=== PATIENT | male | born 1960 | race Caucasian/White ===

== ENCOUNTER → 2016-11-05 03:54 | Emergency (ER) | payer OTHER ==
[~2016-11-05 03:54] MED LIST: HYDROmorphone INJ* 1 MG/ML CARPUJECT SYRINGE IM ONE; oxyCODONE TAB* 5 MG TAB PO ONE
[2016-11-05 04:03] VITALS: BP 151/106
--- NOTE | 2016-11-05 05:27 | ED ---
Chriss Funk Benjamin, scribed for Lala Gonsalez MD on 11/05/16 at 0417 . Upper Extremity Pain - HPI Summary HPI Summary: 56yo male c/o right shoulder pain after a mechanical fall, slipping off ice yesterday evening. Pt took 10mg oxycodone po at 2300, but did not help. Pt states that his pain kept him up all night. - History of Current Complaint Chief Complaint: ANA MARIAstephanAneta Stated Complaint: FALL/RT SHOULDER PAIN Time Seen by Provider: 11/05/16 04:05 Hx Obtained From: Patient Mechanism Of Injury: Fall From A Standing Position Onset/Duration: Started Hours Ago, Traumatic, Still Present Timing: Constant Severity Initially: Moderate Severity Currently: Moderate Pain Location: Shoulder - right Character: Throbbing Aggravating Factor(s): Nothing Alleviating Factor(s): Nothing Associated Signs & Symptoms: Positive: Negative - Allergies/Home Medications Allergies/Adverse Reactions: Allergies Allergy/AdvReac Type Severity Reaction Status Date / Time No Known Allergies Allergy Verified 11/05/15 15:36 PMH/Surg Hx/FS Hx/Imm Hx Endocrine/Hematology History: Denies: Hx Diabetes, Hx Thyroid Disease Cardiovascular History: Reports: Hx Hypercholesterolemia, Hx Hypertension Respiratory History: Reports: Hx Chronic Bronchitis Denies: Hx Asthma, Hx Chronic Obstructive Pulmonary Disease (COPD) GI History: Denies: Hx Ulcer Musculoskeletal History: Reports: Hx Arthritis, Hx Back Problems, Hx Orthopedic Injury - Fractured pelvis and low back at age 14yrs old Sensory History: Reports: Hx Cataracts - Left eye cataract, Hx Contacts or Glasses - Contacts, Hx Vision Problem - Torn Retina last 2013 Left eye Opthamlomology History: Reports: Hx Cataracts - Left eye cataract, Hx Contacts or Glasses - Contacts, Hx Vision Problem - Torn Retina last 2013 Left eye - Surgical History Surgery Procedure, Year, and Place: Tonsillectomy at age 4 yrs Infectious Disease History: No Infectious Disease History: Denies: Hx Clostridium Difficile, Hx Hepatitis, Hx Human Immunodeficiency Virus (HIV), Hx of Known/Suspected MRSA, Hx Shingles, Hx Tuberculosis, Hx Known/ Suspected VRE, Hx Known/Suspected VRSA, History Other Infectious Disease, Traveled Outside the [place] in Last 30 Days - Family History Known Family History: Positive: Cardiac Disease - Social History Alcohol Use: None Alcohol Amount: 2 beer a couple times per month Substance Use Type: Reports: None, Prescribed Substance Use Comment - Amount & Last Used: oxycontin and oxycodone Smoking Status (MU): Never Smoked Tobacco Review of Systems Constitutional: Negative Eyes: Negative ENT: Negative Cardiovascular: Negative Respiratory: Negative Gastrointestinal: Negative Genitourinary: Negative Positive: Arthralgia - right shoulder pain Skin: Negative Neurological: Negative Psychological: Normal All Other Systems Reviewed And Are Negative: Yes Physical Exam Triage Information Reviewed: Yes Vital Signs On Initial Exam: Initial Vitals Temp Pulse Resp BP Pulse Ox 97.3 F 90 17 151/106 97 11/05/16 03:59 11/05/16 03:59 11/05/16 03:59 11/05/16 03:59 11/05/16 03:59 Vital Signs Reviewed: Yes Appearance: Positive: Well-Appearing, No Pain Distress, Well-Nourished Skin: Positive: Warm, Skin Color Reflects Adequate Perfusion, Dry Head/Face: Positive: Normal Head/Face Inspection Eyes: Positive: EOMI, DHIRAJ ENT: Positive: Hearing grossly normal, Pharynx normal, TMs normal Neck: Positive: Supple, Nontender Respiratory/Lung Sounds: Positive: Clear to Auscultation, Breath Sounds Present. Negative: Rales, Rhonchi, Wheezes Cardiovascular: Positive: RRR. Negative: Murmur, Rub Abdomen Description: Positive: Nontender, Soft. Negative: Distended, Guarding Bowel Sounds: Positive: Present Musculoskeletal: Positive: Strength/ROM Intact, Other - Pain at right deltroid. No step off. No tenderness on clavicle. ROM intact to internal and external rotation of the right arm. Neurological: Positive: Sensory/Motor Intact, Alert, Oriented to Person Place, Time, CN Intact II-III Diagnostics - Vital Signs Vital Signs Temp Pulse Resp BP Pulse Ox 11/05/16 03:59 97.3 F 90 17 151/106 97 - Laboratory Lab Statement: Any lab studies that have been ordered have been reviewed, and results considered in the medical decision making process. - Radiology Rt shoulder XR Xray Interpretation: No Acute Changes Radiology Interpretation Completed By: ED Physician Course/Dx - Course Course Of Treatment: pt with good range of motion of arm and shoulder with mild tenderness to deltoid without deformity or noticeable contusion xrays neg given 2 doses of10 mg of his oxycodone to go - Diagnoses Provider Diagnoses: Shoulder injury Discharge - Discharge Plan Condition: Stable Disposition: HOME Patient Education Materials: Contusion in Adults (ED) Referrals: John Arita MD [Primary Care Provider] - The documentation as recorded by the Chriss bravo Benjamin accurately reflects the service I personally performed and the decisions made by me, Lala Gonsalez MD.
--- NOTE | 2016-11-05 07:02 | RAD ---
INDICATION: Right shoulder pain COMPARISON: None TECHNIQUE: Routine frontal and Y views were obtained. FINDINGS: There is AC joint osteoarthritis with sclerosis and spurring. There is minor glenohumeral osteoarthritis. There is no evidence of dislocation. The soft tissues are normal. IMPRESSION: MINOR OSTEOARTHRITIS.
== END | disposition home or self-care (01) ==
LOC: ED 03:54
DX: S49.91XA Unspecified injury of right shoulder and upper arm, initial encounter (principal); W00.9XXA Unspecified fall due to ice and snow, initial encounter; Y93.9 Activity, unspecified; Y92.9 Unspecified place or not applicable; Y99.9 Unspecified external cause status
CPT/HCPCS: 96372; 99282; A9270-GY

== ENCOUNTER 2017-05-08 10:12 | Emergency (ER) | payer OTHER ==
[2017-05-08] MEDS ORDERED: Tetan/Diph/Pertus SYR(Tdap)* 0.5 ML SYR(BOOSTRIX) use SYR IM ONE (10:54)
[2017-05-08] MEDS ORDERED: Ibuprofen TAB* 800 MG PO ONE (10:54)
[2017-05-08] MEDS ORDERED: oxyCODONE/Acetamin 5/325 MG* TAB PO ONE (10:54)
--- NOTE | 2017-05-08 10:59 | ED ---
Upper Extremity Pain - HPI Summary HPI Summary: Lt hand dominant pt here w/ Lt thumb lac on table saw prior to arrival. Throbbing at first - somewhat better now. Believes tetanus vaccine is > 5 years old. Denies numbness, tingling, weakness. Tkaes 80mg oxycodone daily in addition to oxycontin for chronic LBP. Has not taken any meds prior to arrival. - History of Current Complaint Chief Complaint: EDExtremityUpper Stated Complaint: LT THUMB INJURY Time Seen by Provider: 05/08/17 10:46 Hx Obtained From: Patient - Allergies/Home Medications Allergies/Adverse Reactions: Allergies Allergy/AdvReac Type Severity Reaction Status Date / Time Avocado Allergy Headache Verified 06/02/17 02:27 PMH/Surg Hx/FS Hx/Imm Hx Previously Healthy: Yes Endocrine/Hematology History: Denies: Hx Anticoagulant Therapy, Hx Blood Disorders, Hx Diabetes, Hx Thyroid Disease Cardiovascular History: Reports: Hx Hypercholesterolemia, Hx Hypertension Respiratory History: Reports: Hx Chronic Bronchitis Denies: Hx Asthma, Hx Chronic Obstructive Pulmonary Disease (COPD) GI History: Denies: Hx Ulcer Musculoskeletal History: Reports: Hx Arthritis, Hx Back Problems, Hx Orthopedic Injury - Fractured pelvis and low back at age 14yrs old Sensory History: Reports: Hx Cataracts - Left eye cataract, Hx Contacts or Glasses - Contacts, Hx Vision Problem - Torn Retina last 2013 Left eye Opthamlomology History: Reports: Hx Cataracts - Left eye cataract, Hx Contacts or Glasses - Contacts, Hx Vision Problem - Torn Retina last 2013 Left eye - Surgical History Surgery Procedure, Year, and Place: Tonsillectomy at age 4 yrs Infectious Disease History: Denies: Hx Clostridium Difficile, Hx Hepatitis, Hx Human Immunodeficiency Virus (HIV), Hx of Known/Suspected MRSA, Hx Shingles, Hx Tuberculosis, Hx Known/ Suspected VRE, Hx Known/Suspected VRSA, History Other Infectious Disease, Traveled Outside the [place] in Last 30 Days - Family History Known Family History: Positive: Cardiac Disease - Social History Occupation: Employed Full-time Alcohol Use: None Alcohol Amount: 2 beer a couple times per month Hx Substance Use: No Substance Use Type: Reports: None, Prescribed Substance Use Comment - Amount & Last Used: oxycontin and oxycodone Hx Tobacco Use: No Smoking Status (MU): Never Smoked Tobacco Review of Systems Negative: Chest Pain Negative: Shortness Of Breath Positive: no symptoms reported Musculoskeletal: Other - see HPI Skin: Other - see HPI Neurological: Negative Negative: Weakness, Paresthesia, Numbness Psychological: Normal All Other Systems Reviewed And Are Negative: Yes Physical Exam Triage Information Reviewed: Yes Vital Signs On Initial Exam: Initial Vitals Temp Pulse Resp BP Pulse Ox 97.0 F 101 20 156/108 99 05/08/17 10:13 05/08/17 10:13 05/08/17 10:13 05/08/17 10:13 05/08/17 10:13 Vital Signs Reviewed: Yes Appearance: Positive: Well-Appearing, No Pain Distress, Well-Nourished Skin: Positive: Warm - distal dorsal tip of Lt thumb w/ jagged avulsion of skin - no active bleeding Head/Face: Positive: Normal Head/Face Inspection Eyes: Positive: Normal, EOMI ENT: Positive: Hearing grossly normal, Pharynx normal - oral mucosa somewhat dry Respiratory/Lung Sounds: Positive: Breath Sounds Present Cardiovascular: Positive: Normal, Pulses are Symmetrical in both Upper and Lower Extremities Musculoskeletal: Positive: Normal, Strength/ROM Intact Neurological: Positive: Normal, Sensory/Motor Intact, Alert, Oriented to Person Place, Time, CN Intact II-III Psychiatric: Positive: Anxious Procedures - Procedure Summary Procedure Summary: Distal Left thumb with jagged avulsion of skin - no bone exposure identified - no FB identified. Bleeding controlled. Area cleaned with sterile saline, dried and dressed with xeroform + sterile gauze. Pt tolerated well. Diagnostics - Vital Signs Vital Signs Temp Pulse Resp BP Pulse Ox 05/08/17 10:13 97.0 F 101 20 156/108 99 - Laboratory Lab Statement: Any lab studies that have been ordered have been reviewed, and results considered in the medical decision making process. Course/Dx - Course Course Of Treatment: Pt here w/ laceration to Lt thumb while using table saw earlier today. Avulsion of skin at distal aspect w/o involvement of bone, tendon , nerves and no active bleeding. His XR has a small metalic FB identified which is proximal to area of injury. Pt admits he is aware of this and reports it's from a previous injury - no pain or overlying skin changes. Acute wound addressed to today. Pt aware of wound care instructions and f/u as advised. - Diagnoses Provider Diagnoses: Avulsion of skin of left thumb Discharge - Discharge Plan Condition: Stable Disposition: HOME Patient Education Materials: Skin Avulsion (ED) Referrals: John Arita MD [Primary Care Provider] - Additional Instructions: Keep dressing clean, dry and intact for 48 hours. Follow-up with PCP for dressing removal and wound check. If healing well, you may proceed to daily gentle cleanses with soap and water - rinse well and replace triple antibiotic dressing + gauze. Rest, ice, elevate for pain, swelling You may also take ibuprofen for pain with food *If you develop fever, chills, streaking, swelling, purulent drainage, seek medical attention
--- NOTE | 2017-05-08 11:33 | RAD ---
INDICATION: Table saw laceration left thumb. TECHNIQUE: 3 views of the left thumb were obtained. FINDINGS: There is soft tissue swelling adjacent to the distal phalanx. No fracture is seen. There is a punctate metallic density which projects superficially over the dorsal soft tissues at the level of the distal phalanx. IMPRESSION: 1. NO EVIDENCE FOR FRACTURE. 2. PUNCTATE METALLIC FOREIGN BODY IN OR ON THE SOFT TISSUES.
[2017-05-08 12:13] VITALS: BP 126/90
== END 2017-05-08 12:13 | disposition home or self-care (01) ==
LOC: ED 10:12
DX: S61.012A Laceration without foreign body of left thumb without damage to nail, initial encounter (principal); W45.8XXA Other foreign body or object entering through skin, initial encounter; Y93.9 Activity, unspecified; Y92.9 Unspecified place or not applicable
CPT/HCPCS: 90471; 90715; 99282; A9270-GY

== ENCOUNTER 2017-05-21 11:02 | Emergency (ER) | payer OTHER ==
--- NOTE | 2017-05-21 12:17 | RAD ---
INDICATION: Left hip pain, remote injury. COMPARISON: Comparison is made with a prior x-ray study of the pelvis from January 05, 2015. TECHNIQUE: An AP view of the pelvis and frontal and lateral views of the left hip were obtained. FINDINGS: There are old fractures of the superior and inferior pubic rami present on both sides. No acute fracture is seen. There is mild bilateral osteoarthritic change in the hips. IMPRESSION: 1. MILD BILATERAL OSTEOARTHRITIC CHANGE IN THE HIPS. 2. MULTIPLE OLD PELVIC FRACTURES.
[2017-05-21] MEDS ORDERED: oxyCODONE TAB* 5 MG TAB PO ONE (13:57)
[2017-05-21] MEDS ORDERED: Ketorolac INJ* 60 MG/2 ML VIAL IM ONE (13:58)
[2017-05-21] MEDS ORDERED: Cyclobenzaprine TAB* 10 MG PO ONE (13:58)
[2017-05-21] MEDS ORDERED: Dexamethasone IV* 4 MG/ML 1 ML (4 MG) IM ONE (13:58)
--- NOTE | 2017-05-21 14:07 | ED ---
Lower Extremity - HPI Summary HPI Summary: 56 male presents via EMS with complaints of left hip pain that began 3 days ago. Patient had a traumatic injury 42 years ago and think he injured it again on Sunday when lifting and moving heavy items. Patient states it has become debilitating and his pain medications are not working. Patient see Dr Dupree for pain management. Take 20mg oxycodone 6 times a day along with 30mg of oxycontin. Has only taken oxycodone 20mg with last dose at 6am today because he ran out of his oxycontin. Patient states he has been unable to walk. Can not move without pain. Feels better when laying down. Feels like "it is falling apart". Patient states when sitting he feels as though the circulation is being cut off. Denies any other known trauma, falls or pain/injuries. Patient denies new numbness/tingling, pallor, pulselessness. Has been using the bathroom normally. Denies saddle anesthesia. - History of Current Complaint Chief Complaint: EDHipPelvisInjury Stated Complaint: HIP PAIN Time Seen by Provider: 05/21/17 11:24 Hx Obtained From: Patient Mechanism Of Injury: Unknown - lifting heavy equipment Onset of Pain: Days - 3 Onset/Duration: Days - 3 Severity Initially: Moderate Severity Currently: Severe Pain Intensity: 8 Pain Scale Used: 0-10 Numeric Timing: Constant Location: Is Discrete @ - left hip Character Of Pain: Sharp, Aching Associated Signs And Symptoms: Negative: Swelling, Redness Aggravating Factor(s): Standing, Ambulation, Movement Alleviating Factor(s): Rest - laying down Able to Bear Weight: Yes - but excrutiating pain - Allergies/Home Medications Allergies/Adverse Reactions: Allergies Allergy/AdvReac Type Severity Reaction Status Date / Time No Known Allergies Allergy Verified 11/05/15 15:36 PMH/Surg Hx/FS Hx/Imm Hx Endocrine/Hematology History: Denies: Hx Anticoagulant Therapy, Hx Blood Disorders, Hx Diabetes, Hx Thyroid Disease Cardiovascular History: Reports: Hx Hypercholesterolemia, Hx Hypertension Respiratory History: Reports: Hx Chronic Bronchitis Denies: Hx Asthma, Hx Chronic Obstructive Pulmonary Disease (COPD) GI History: Denies: Hx Ulcer Musculoskeletal History: Reports: Hx Arthritis, Hx Back Problems, Hx Orthopedic Injury - Fractured pelvis and low back at age 14yrs old Sensory History: Reports: Hx Cataracts - Left eye cataract, Hx Contacts or Glasses - Contacts, Hx Vision Problem - Torn Retina last 2013 Left eye Opthamlomology History: Reports: Hx Cataracts - Left eye cataract, Hx Contacts or Glasses - Contacts, Hx Vision Problem - Torn Retina last 2013 Left eye - Surgical History Surgery Procedure, Year, and Place: Tonsillectomy at age 4 yrs - Immunization History Immunizations Up to Date: Yes Infectious Disease History: No Infectious Disease History: Denies: Hx Clostridium Difficile, Hx Hepatitis, Hx Human Immunodeficiency Virus (HIV), Hx of Known/Suspected MRSA, Hx Shingles, Hx Tuberculosis, Hx Known/ Suspected VRE, Hx Known/Suspected VRSA, History Other Infectious Disease, Traveled Outside the [place] in Last 30 Days - Family History Known Family History: Positive: Cardiac Disease - Social History Alcohol Use: None Alcohol Amount: 2 beer a couple times per month Hx Substance Use: No Substance Use Type: Reports: None, Prescribed Substance Use Comment - Amount & Last Used: oxycontin and oxycodone Hx Tobacco Use: No Smoking Status (MU): Never Smoked Tobacco Review of Systems Constitutional: Negative Cardiovascular: Negative Respiratory: Negative Genitourinary: Negative Positive: Arthralgia, Myalgia, Decreased ROM - left hip Skin: Negative Neurological: Negative All Other Systems Reviewed And Are Negative: Yes Physical Exam Triage Information Reviewed: Yes Vital Signs On Initial Exam: Initial Vitals Temp Pulse Resp BP Pulse Ox 98.5 F 80 20 153/95 96 05/21/17 11:21 05/21/17 11:21 05/21/17 11:21 05/21/17 11:21 05/21/17 11:21 Vital Signs Reviewed: Yes Appearance: Positive: Well-Appearing, Well-Nourished, Pain Distress - moderate with movement of left hip Skin: Positive: Warm, Skin Color Reflects Adequate Perfusion, Dry. Negative: Cold, Numb, Tender, Soft, Cyanosis @, Erythema @ Head/Face: Positive: Normal Head/Face Inspection Eyes: Positive: Conjunctiva Clear ENT: Positive: Hearing grossly normal Neck: Positive: Supple, Nontender Respiratory/Lung Sounds: Positive: Clear to Auscultation, Breath Sounds Present. Negative: Rales, Rhonchi, Wheezes Cardiovascular: Positive: Normal, RRR, Pulses are Symmetrical in both Upper and Lower Extremities - 2+. Negative: Murmur, Rub, Leg Edema Left, Leg Edema Right Bowel Sounds: Positive: Present Musculoskeletal: Positive: Limited @ - left lower extremity due to pain with all directions, able to move toes and ankle, anle to flex hip 25-40 degrees however painful. strenth limited 3/5 due to pain., Pain @ - left hip on palpation, Other - slightly shorter left length ~2cm however this is a normal finding since his injury. no crepitus, step off or obvious deformity. rest of MSK exam normal. normal skin exam.. Negative: Interruption @, Phil Sign Left, Phil Sign Right, Edema Left, Edema Right Neurological: Positive: Normal, Sensory/Motor Intact - sensation intact, Alert, Oriented to Person Place, Time, CN Intact II-III, Reflexes Intact, NV Bundle Intact Distally, Unable to Assess Gait - due to pain Psychiatric: Positive: Affect/Mood Appropriate - Alaina Coma Scale Coma Scale Total: 15 Diagnostics - Vital Signs Vital Signs Temp Pulse Resp BP Pulse Ox 05/21/17 11:26 98.5 F 80 20 153/95 96 05/21/17 11:21 98.5 F 80 20 153/95 96 - Laboratory Lab Statement: Any lab studies that have been ordered have been reviewed, and results considered in the medical decision making process. - Radiology left hip Xray Interpretation: No Acute Changes - 1. MILD BILATERAL OSTEOARTHRITIC CHANGE IN THE HIPS. 2. MULTIPLE OLD PELVIC FRACTURES. Radiology Interpretation Completed By: Radiologist Re-Evaluation - Re-Evaluation First Eval Re-Evaluation Time: 14:45 Change: Improved - after meds Lower Extremity Course/Dx - Course Course Of Treatment: given daily dose of oxycodone, toradol, dexamethasone and muscle relaxer to help with acute pain on top of chornic, possible muscular/ ligamentous injury. x-ray obtained and negative for acute injury. had relief from medication while in ED. given crutches told to follow up with Dr Dupree and ortho/pcp for further evaluation/pcp. Aware of worsening signs and symptoms to watch out for. continue at home medications for pain in addition to steroid and muscle relaxer and ibuprofen. - Diagnoses Differential Diagnosis/HQI/PQRI: Positive: Arthritis, Dislocation, Fracture ( Closed), Sprain, Strain Provider Diagnoses: Chronic left hip pain Discharge - Discharge Plan Condition: Stable Disposition: HOME Prescriptions: Cyclobenzaprine TAB* [Flexeril 10 MG TAB*] 10 mg PO BEDTIME #12 tab predniSONE TAB* [Deltasone TAB*] 40 mg PO DAILY #8 tab Patient Education Materials: Hip Pain (ED) Referrals: John Arita MD [Primary Care Provider] - Juan C Davison MD [Medical Doctor] - Additional Instructions: Take prescribed medication as directed, take pain meds you are already prescribed. Supplement with ibuprofen in between doses if needed. Take with food. Prednisone in morning and flexeril at bedtime. Rest and use crutches for support with walking. Follow up with Dr Dupree and with primary care provider. Appointment with ortho for further imaging and evaluation for your chronic pain. If new symptoms develops, symptoms worsen or persist please seek medical attention promptly.
[2017-05-21 15:22] VITALS: BP 152/84
== END 2017-05-21 15:21 | disposition home or self-care (01) ==
LOC: ED 11:02
DX: M25.552 Pain in left hip (principal)
CPT/HCPCS: 96372; 99282; A9270-GY; J1100; J1885

== ENCOUNTER 2017-06-02 02:04 | Inpatient (IN) | payer OTHER ==
[2017-06-02] MEDS ORDERED: Ketorolac INJ* 60 MG/2 ML VIAL IM ONE (02:34)
[2017-06-02] MEDS ORDERED: Lidocaine 2% VISCOUS* 15 ML UDC PO ONE (03:56)
[2017-06-02] MEDS ORDERED: Al Hydrox/Mg Hydrox/Simet LIQ* 30 ML UDC PO ONE (03:56)
--- NOTE | 2017-06-02 04:13 | ED ---
Yamel Funk Edward, scribed for Bartolo Dodge MD on 06/02/17 at 0205 . Back Pain - HPI Summary HPI Summary: 56 y/o male TAYA c/o gradual onset L lower back pain radiating into the pelvic area starting a couple of weeks ago. The pain is constant and described as a severe pressure. The pain is aggravated by walking.Pt seen recently in ed for same, has not followed up with pcp, startes is running out of meds - History of Current Complaint Stated Complaint: BACK PAIN Hx Obtained From: Patient Onset/Duration: Gradual Onset, Lasting Weeks, Still Present Back Pain Location: Is Discrete @ - Lower back, Radiates To - Pelvic region Severity Currently: Severe Aggravating Symptom(s): Walking - Allergies/Home Medications Allergies/Adverse Reactions: Allergies Allergy/AdvReac Type Severity Reaction Status Date / Time Avocado Allergy Headache Verified 06/02/17 02:27 Home Medications: Home Medications Amitriptyline TAB* [Elavil TAB*] 10 mg PO BEDTIME 06/02/17 [History Confirmed ] PMH/Surg Hx/FS Hx/Imm Hx Previously Healthy: No Endocrine/Hematology History: Denies: Hx Anticoagulant Therapy, Hx Blood Disorders, Hx Diabetes, Hx Thyroid Disease Cardiovascular History: Reports: Hx Hypercholesterolemia, Hx Hypertension Respiratory History: Reports: Hx Chronic Bronchitis Denies: Hx Asthma, Hx Chronic Obstructive Pulmonary Disease (COPD) GI History: Denies: Hx Ulcer Musculoskeletal History: Reports: Hx Arthritis, Hx Back Problems, Hx Orthopedic Injury - Fractured pelvis and low back at age 14yrs old Sensory History: Reports: Hx Cataracts - Left eye cataract, Hx Contacts or Glasses - Contacts, Hx Vision Problem - Torn Retina last 2013 Left eye Opthamlomology History: Reports: Hx Cataracts - Left eye cataract, Hx Contacts or Glasses - Contacts, Hx Vision Problem - Torn Retina last 2013 Left eye - Surgical History Surgery Procedure, Year, and Place: Tonsillectomy at age 4 yrs Infectious Disease History: Denies: Hx Clostridium Difficile, Hx Hepatitis, Hx Human Immunodeficiency Virus (HIV), Hx of Known/Suspected MRSA, Hx Shingles, Hx Tuberculosis, Hx Known/ Suspected VRE, Hx Known/Suspected VRSA, History Other Infectious Disease - Family History Known Family History: Positive: Cardiac Disease - Social History Alcohol Use: None Alcohol Amount: 2 beer a couple times per month Hx Substance Use: No Substance Use Type: Reports: None, Prescribed Substance Use Comment - Amount & Last Used: oxycontin and oxycodone Hx Tobacco Use: No Smoking Status (MU): Never Smoked Tobacco Review of Systems Constitutional: Negative Eyes: Negative ENT: Negative Cardiovascular: Negative Respiratory: Negative Gastrointestinal: Negative Genitourinary: Negative Positive: Myalgia - L lower back pain Skin: Negative Neurological: Negative Psychological: Normal All Other Systems Reviewed And Are Negative: Yes Physical Exam Triage Information Reviewed: Yes Vital Signs On Initial Exam: Initial Vitals Temp Pulse Resp BP Pulse Ox 97.5 F 109 16 149/96 97 06/02/17 02:20 06/02/17 02:20 06/02/17 02:20 06/02/17 02:20 06/02/17 02:20 Vital Signs Reviewed: Yes Appearance: Positive: Well-Appearing, Pain Distress - mild discomfort Skin: Positive: Warm Head/Face: Positive: Normal Head/Face Inspection Eyes: Positive: DHIRAJ ENT: Positive: Hearing grossly normal Neck: Positive: Supple Respiratory/Lung Sounds: Positive: Breath Sounds Present Cardiovascular: Positive: RRR Abdomen Description: Positive: Nontender, Soft Musculoskeletal: Positive: Phil Sign Left, Other - paralumbar spasm Neurological: Positive: Alert, Oriented to Person Place, Time Diagnostics - Vital Signs Vital Signs Temp Pulse Resp BP Pulse Ox 06/02/17 02:23 98.7 F 107 16 149/96 96 06/02/17 02:20 97.5 F 109 16 149/96 97 - Laboratory Lab Statement: Any lab studies that have been ordered have been reviewed, and results considered in the medical decision making process. Re-Evaluation - Re-Evaluation First Eval Comment: pt states cannot take care of self, needs to be admoitted, socisal sevice consult requested Back Pain Course/Dx - Course Assessment/Plan: 56 y/o male BIBA c/o gradual onset L lower back pain radiating into the pelvic area starting a couple of weeks ago. The pain is constant and described as a severe pressure. The pain is aggravated by walking. Pt is awaiting social work administrator. Pt will be signed out at morning shift change. - Diagnoses Provider Diagnoses: Acute exacerbation of chronic low back pain - Provider Notifications Instructed by Provider To: Admit As Observation Discharge - Discharge Plan Condition: Fair Disposition: ADMITTED TO [facility] Discharge Disposition Comment: Sign out at shift change The documentation as recorded by the Yamel bravo Edward accurately reflects the service I personally performed and the decisions made by me, Bartolo Dodge MD.
[2017-06-02 09:44] LABS: Benzodiazepine Urine Screen None Detected (None Detect)
[2017-06-02] MEDS ORDERED: Magnesium Hydroxide LIQ* 30 ML UDC PO PRN (11:13)
[2017-06-02] MEDS ORDERED: Ondansetron INJ* 2 MG/ML VIAL IV PRN (11:13)
[2017-06-02] MEDS ORDERED: methylPREDNISolone 125 MG* 2 ML VIAL IV ONE (11:16)
[2017-06-02] MEDS ORDERED: oxyCODONE TAB* 5 MG TAB PO PRN (11:17)
[2017-06-02] MEDS ORDERED: Lidocaine PATCH 5%* 1 PATCH ONE (11:32)
[2017-06-02] MEDS: Lidocaine PATCH 5%* 1 PATCH TRANSDERM SCH (11:33)
[2017-06-02] MEDS: Cyclobenzaprine TAB* 10 MG PO PRN ×2 (12:54→21:49)
[2017-06-02] MEDS: oxyCODONE SR TAB(*) 10 MG TAB.SR PO SCH ×2 (12:55→21:33)
[2017-06-02] MEDS: Heparin VIAL(*) 5000 UNITS/ML VIAL (FIVE THOUSAND) SUBCUT SCH ×2 (12:55→21:35)
--- NOTE | 2017-06-02 13:17 | ED ---
Progress - Progress Note Progress Note: Patient was signed out by Dr. Dodge to follow up the social science professor recommendation speeder worker discussed the case wit Dr. Amaya who came and examined the patient and he decided to admit the patient to his services for further w/o and management. Re-Evaluation - Re-Evaluation First Eval Comment: pt states cannot take care of self, needs to be admoitted, dorothy brooks consult requested Course/Dx - Diagnoses Provider Diagnoses: Acute exacerbation of chronic low back pain
[2017-06-02] MEDS: Acetaminophen TAB* 325 MG PO PRN ×2 (14:28→20:02)
--- NOTE | 2017-06-02 14:34 | HP ---
CC: Dr. Arita * ADMISSION HISTORY AND PHYSICAL: DATE OF ADMISSION: 06/02/17 PRIMARY CARE PROVIDER: Dr. John Arita HEALTHCARE PROXY: His brother, Cole. CODE STATUS: Full. SOURCE OF INFORMATION: History obtained from interview with the patient. RELIABILITY: Fair. CHIEF COMPLAINT: Lower back/left hip pain. HISTORY OF PRESENT ILLNESS: This is a 56-year-old man with past medical history of chronic pain, which started when he was 14, status post tractor injury with multiple fractures to his pelvis and requiring pelvic repair followed by pain management, Dr. Dupree, been in his usual state of health until several weeks prior started noticing increasing lower back and left hip pain. He notes no recent trauma; however, presented to the emergency room on . He noted that his pain had increased while lifting a heavy object. On , he did receive a dose of steroids and improvement and returned home. However, over the last 12 days, pain has been steadily increasing. He notes over the last 5 days, he has been unable to stand and get out of bed. He described this pain as throbbing and shooting in his lower back, extending towards his groin. He has no recent falls or changes to medications. He has no fevers, chills, or night sweats. He has no dysuria, hematuria, urinary incontinence, or stool incontinence. He usually walks unassisted; however, refuses to ambulate in the emergency room secondary to pain. The pain has not been constant; however, is positional, particularly worse when standing or if he "turns the wrong way," at which time the pain can feel like it "locks up." When seen in the emergency room, the patient had not received his morning doses of long-acting OxyContin or breakthrough oxycodone, which was due approximately 3 hours ago, and his pain was remarkably well controlled; however, the patient continues to report how pain was much more severe earlier and caused him shouting out in pain. PAST MEDICAL HISTORY: Includes basal cell carcinomas that have been removed, chronic lower back pain, status post pelvic injury at age of 14, has a left cataract repair and left retinal tear repair, tonsillectomy at age 4. HOME MEDICATIONS: Include: 1. OxyContin 30 mg twice daily. 2. Oxycodone 20 mg every 6 hours. 3. Amitriptyline at an unknown dose, although notes he takes 2 small pills of it. ALLERGIES: AVOCADO. FAMILY HISTORY: His brother had a CVA. His father had hypertension and diabetes. Mother is still alive with dementia at age 85. SOCIAL HISTORY: No alcohol, tobacco, or illicits. Lives alone in a home he built on his brother's property. He still works in construction. REVIEW OF SYSTEMS: As per HPI, otherwise all other systems negative. PHYSICAL EXAMINATION GENERAL: Lying flat in bed, interactive, pleasant, in no apparent distress. VITAL SIGNS: In the emergency room, blood pressure 143/100, heart rate ranging between 90 and 111, respiratory rate is 16, 98% on room air, T-max 98.7. HEENT: His oropharynx is clear. He has moist mucous membranes. Sclerae are anicteric. He has non-elevated JVD. He has no supraclavicular or supracervical lymphadenopathy. LUNGS: Clear to auscultation. HEART: Regular rate and rhythm. ABDOMEN: Soft, nontender, nondistended. GENITOURINARY: Exam indicates no hernias. EXTREMITIES: Warm and well perfused. No clubbing, cyanosis, or edema. His left hip is nontender to palpation. He has a full range of motion in bilateral hips without pain. He has 5/5 strength in proximal and distal lower extremities while lying in bed. His sensation is intact in his lower extremities. Downgoing Babinski. NEUROLOGIC: He is alert and oriented x3. His cranial nerves are intact. Left eye is 4 mm and right eye is 2 mm. PSYCH: No apparent anxiety, agitation, or depression. DIAGNOSTIC STUDIES/LAB DATA: Labs reviewed - no labs. Data reviewed: Most recent hip x-ray on 05/21/17 indicated mild bilateral osteoarthritic change in bilateral hips. Multiple old pelvic fractures. ASSESSMENT AND PLAN: This is a 56-year-old man chronic pelvic and back pain, status post remote injury at the age of 14, presenting with increased acute-on- chronic pain crisis. Acute on chronic pain crisis, unclear etiology, although did indicate lifting heavy object on 05/21/17 when he presented to the emergency room. We will continue home medications including long and short-acting oxycodone. Add Motrin. Increase the patient's home Flexeril from evening standing to 3 times a day p.r.n. as the nature of the pain does seem to be waxing and waning, indicating some element of spasm. Initiate Motrin 600 mg every 6 hours as well as acetaminophen 650 [address] every [address] a lidocaine patch on the hip and we will request a PT consultation. We will dose methylprednisolone 125 mg once in the emergency room and continue 40 mg starting tomorrow. Continue bowel regimen given opioids. Monitor blood pressure which is elevated in the emergency room. If continues to be elevated tomorrow with better pain control, consider new agent. [id number]/[facility] #: [id number] MTDD
[2017-06-02] MEDS: Al Hydrox/Mg Hydrox/Simet LIQ* 30 ML UDC PO PRN (15:48)
[2017-06-02] MEDS: oxyCODONE TAB* 5 MG TAB PO PRN (18:03)
[2017-06-02] MEDS: Calcium Carbonate CHEW TAB* 500 MG (TUMS) PO PRN (18:04)
[2017-06-02] MEDS: Senna TAB PO SCH (20:02)
[2017-06-02] MEDS: Docusate CAP* 100 MG PO SCH (20:02)
[2017-06-02] MEDS: Amitriptyline TAB* 25 MG PO SCH (20:02)
[2017-06-02] MEDS ORDERED: HYDROmorphone* 1 MG/ML 1 ML SYR IV SLOW PU PRN (22:07)
[2017-06-02] MEDS: LORazepam INJ* 2 MG/ML 1 ML VIAL IV PUSH PRN (22:28)
[2017-06-02] MEDS: Lidocaine Patch REMOVE* 1 NOTE MISC SCH (23:11)
[2017-06-03] MEDS: oxyCODONE TAB* 5 MG TAB PO PRN (01:47)
[2017-06-03] MEDS: Ibuprofen TAB* 600 MG PO PRN ×2 (01:53→14:55)
[2017-06-03] MEDS ORDERED: HYDROmorphone* 1 MG/ML 1 ML SYR IV SLOW PU PRN (02:01)
[2017-06-03] MEDS: LORazepam INJ* 2 MG/ML 1 ML VIAL IV PUSH PRN (04:30)
[2017-06-03] MEDS: Heparin VIAL(*) 5000 UNITS/ML VIAL (FIVE THOUSAND) SUBCUT SCH ×3 (05:49→21:40)
[2017-06-03] MEDS: oxyCODONE SR TAB(*) 10 MG TAB.SR PO SCH ×2 (09:15→20:34)
[2017-06-03] MEDS: Lidocaine PATCH 5%* 1 PATCH TRANSDERM SCH (09:15)
[2017-06-03] MEDS: predniSONE TAB* 20 MG PO SCH (09:16)
[2017-06-03] MEDS: Senna TAB PO SCH ×2 (09:19→20:35)
[2017-06-03] MEDS: Docusate CAP* 100 MG PO SCH ×2 (09:19→20:35)
--- NOTE | 2017-06-03 09:53 | PN ---
Subjective Date of Service: 06/03/17 Interval History: This is a 56 yo gentleman with chronic back pain who presented with c/o an acute exacerbation of his pain. Most of his pain is in his L hip and radiates down his L leg. He reports some occasional numbness in the L leg. No urinary/ stool incontinence or retention. No c/o weakness. This am, his pain is slightly better. He has not attempted to get out of bed yet. Objective Active Medications: Acetaminophen (Tylenol Tab*) 650 mg PO Q6H PRN PRN Reason: PAIN Last Admin: 06/02/17 20:02 Dose: 650 mg Al Hydrox/Mg Hydrox/Simethicone (Maalox Plus*) 30 ml PO Q6H PRN PRN Reason: INDIGESTION Last Admin: 06/02/17 15:48 Dose: 30 ml Amitriptyline HCl (Elavil Tab*) 25 mg PO BEDTIME [facility] Last Admin: 06/02/17 20:02 Dose: 25 mg Calcium Carbonate (Tums*) 1,000 mg PO Q6H PRN PRN Reason: INDIGESTION Last Admin: 06/02/17 18:04 Dose: 1,000 mg Cyclobenzaprine HCl (Flexeril Tab*) 10 mg PO TID [facility] Docusate Sodium (Colace Cap*) 100 mg PO BID [facility] Last Admin: 06/03/17 09:19 Dose: Not Given Gabapentin (Neurontin Cap(*)) 100 mg PO BID [facility] Heparin Sodium (Porcine) (Heparin Vial(*)) 5,000 units SUBCUT Q8HR [facility] Last Admin: 06/03/17 05:49 Dose: 5,000 units Ibuprofen (Motrin Tab*) 600 mg PO Q6H PRN PRN Reason: PAIN Last Admin: 06/03/17 01:53 Dose: 600 mg Lidocaine (Lidoderm 5% Patch*) 1 patch TRANSDERM DAILY [facility] Last Admin: 06/03/17 09:15 Dose: 1 patch Magnesium Hydroxide (Milk Of Magnesia Liq*) 30 ml PO Q4H PRN PRN Reason: CONSTIPATION Ondansetron HCl (Zofran Inj*) 4 mg IV Q4H PRN PRN Reason: NAUSEA/VOMITING Last Admin: 06/02/17 20:47 Dose: 4 mg Oxycodone HCl (Oxycontin(*)) 30 mg PO BID [facility] Last Admin: 06/03/17 09:15 Dose: 30 mg Oxycodone HCl (Roxycodone Tab*) 20 mg PO 0900,1200,1500,2200 [facility] Pharmacy Profile Note (Lidocaine Patch Remove*) 1 note N/A 2100 [facility] Last Admin: 06/02/17 23:11 Dose: 1 note Prednisone (Deltasone Tab*) 40 mg PO DAILY [facility] Last Admin: 06/03/17 09:16 Dose: 40 mg Senna (Senokot Tab*) 1 tab PO BID [facility] Last Admin: 06/03/17 09:19 Dose: Not Given Vital Signs: Temp Pulse Resp BP Pulse Ox 97.3 F 105 18 135/84 98 06/03/17 07:31 06/03/17 07:31 06/03/17 09:15 06/03/17 07:31 06/03/17 07:31 Appearance: Slightly uncomfortable appearing middle aged gentleman in NAD Respiratory: Symmetrical Chest Expansion and Respiratory Effort, Clear to Auscultation Cardiovascular: NL Sounds; No Murmurs; No JVD, RRR Extremities: No Edema Skin: No Rash or Ulcers Neurological: Alert and Oriented x 3, - - FROM LLE, strength intact, unable to assess DTRs, sensation is grossly intact Assess/Plan/Problems-Billing Assessment: This is a 56 yo gentleman with a h/o chronic back pain which was recently exacerbated who was admitted for pain control. - Patient Problems (1) Back pain Comment: Acute on chronic, pt reports an acute injury 05/21 with new L radicular pain No neurologic weakness or other deficit Cont home doses of narcotics Added gabapentin and scheduled flexeril Corticosteroids will be continued Re-eval by PT is pending for later today (2) Full code status (3) DVT prophylaxis Comment: SQ heparin Status and Disposition: Observation. Possible dc later this afternoon
[2017-06-03] MEDS: oxyCODONE TAB* 5 MG TAB PO SCH ×4 (11:02→21:38)
[2017-06-03] MEDS: Gabapentin CAP(*) 100 MG PO SCH ×2 (11:03→20:33)
[2017-06-03] MEDS: Cyclobenzaprine TAB* 10 MG PO SCH ×2 (13:22→20:34)
--- NOTE | 2017-06-03 16:29 | PN ---
Hospitalist Progress Note Patient was re-evaluated later in the day. He was able to ambulate a few steps with PT but it caused severe pain. Patient otherwise lives alone and has stairs to navigate. Will plan to keep patient in the hospital overnight and obtain MRI of the Lspine tomorrow.
[2017-06-03] MEDS: Al Hydrox/Mg Hydrox/Simet LIQ* 30 ML UDC PO PRN (20:00)
[2017-06-03] MEDS: Amitriptyline TAB* 25 MG PO SCH (20:34)
[2017-06-03] MEDS: Lidocaine Patch REMOVE* 1 NOTE MISC SCH (20:35)
[2017-06-03] MEDS: Acetaminophen TAB* 325 MG PO PRN (21:45)
[2017-06-04] MEDS: Calcium Carbonate CHEW TAB* 500 MG (TUMS) PO PRN ×3 (00:51→19:24)
[2017-06-04] MEDS: Heparin VIAL(*) 5000 UNITS/ML VIAL (FIVE THOUSAND) SUBCUT SCH ×3 (05:53→21:21)
[2017-06-04] MEDS: Docusate CAP* 100 MG PO SCH ×2 (08:20→21:13)
[2017-06-04] MEDS: predniSONE TAB* 20 MG PO SCH (08:20)
[2017-06-04] MEDS: Senna TAB PO SCH ×2 (08:20→21:13)
[2017-06-04] MEDS: Cyclobenzaprine TAB* 10 MG PO SCH ×3 (08:20→21:12)
[2017-06-04] MEDS: oxyCODONE SR TAB(*) 10 MG TAB.SR PO SCH ×2 (08:21→21:12)
[2017-06-04] MEDS: Gabapentin CAP(*) 100 MG PO SCH ×2 (08:21→21:13)
[2017-06-04] MEDS: Lidocaine PATCH 5%* 1 PATCH TRANSDERM SCH (08:21)
[2017-06-04] MEDS: oxyCODONE TAB* 5 MG TAB PO SCH ×4 (09:06→21:20)
[2017-06-04] MEDS: Al Hydrox/Mg Hydrox/Simet LIQ* 30 ML UDC PO PRN (10:31)
[2017-06-04] MEDS ORDERED: LORazepam INJ* 2 MG/ML 1 ML VIAL IV PUSH ONE (15:30)
--- NOTE | 2017-06-04 17:18 | RAD ---
INDICATION: Evaluate for metallic foreign body. TECHNIQUE: Frontal and lateral views of the orbits were obtained. FINDINGS: No metallic foreign body is seen. The paranasal sinuses appear grossly clear. There is moderate deviation of the nasal septum toward the left side. IMPRESSION: NO EVIDENCE FOR METALLIC FOREIGN BODY.
--- NOTE | 2017-06-04 18:25 | PN ---
Subjective Date of Service: 06/04/17 Interval History: Patient reports persistent pain, still localized to the L hip and leg. He denies associated weakness but occasional numbness. His pain is manageable at rest but severe with any movement. Objective Active Medications: Acetaminophen (Tylenol Tab*) 650 mg PO Q6H PRN PRN Reason: PAIN Last Admin: 06/03/17 21:45 Dose: 650 mg Al Hydrox/Mg Hydrox/Simethicone (Maalox Plus*) 30 ml PO Q6H PRN PRN Reason: INDIGESTION Last Admin: 06/04/17 10:31 Dose: 30 ml Amitriptyline HCl (Elavil Tab*) 25 mg PO BEDTIME [facility] Last Admin: 06/03/17 20:34 Dose: 25 mg Calcium Carbonate (Tums*) 1,000 mg PO Q6H PRN PRN Reason: INDIGESTION Last Admin: 06/04/17 10:28 Dose: 1,000 mg Cyclobenzaprine HCl (Flexeril Tab*) 10 mg PO TID [facility] Last Admin: 06/04/17 14:24 Dose: 10 mg Docusate Sodium (Colace Cap*) 100 mg PO BID [facility] Last Admin: 06/04/17 08:20 Dose: Not Given Gabapentin (Neurontin Cap(*)) 100 mg PO BID [facility] Last Admin: 06/04/17 08:21 Dose: 100 mg Heparin Sodium (Porcine) (Heparin Vial(*)) 5,000 units SUBCUT Q8HR [facility] Last Admin: 06/04/17 15:16 Dose: 5,000 units Ibuprofen (Motrin Tab*) 600 mg PO Q6H PRN PRN Reason: PAIN Last Admin: 06/03/17 14:55 Dose: 600 mg Lidocaine (Lidoderm 5% Patch*) 1 patch TRANSDERM DAILY [facility] Last Admin: 06/04/17 08:21 Dose: 1 patch Magnesium Hydroxide (Milk Of Magnesia Liq*) 30 ml PO Q4H PRN PRN Reason: CONSTIPATION Ondansetron HCl (Zofran Inj*) 4 mg IV Q4H PRN PRN Reason: NAUSEA/VOMITING Last Admin: 06/02/17 20:47 Dose: 4 mg Oxycodone HCl (Oxycontin(*)) 30 mg PO BID [facility] Last Admin: 06/04/17 08:21 Dose: 30 mg Oxycodone HCl (Roxycodone Tab*) 20 mg PO 0900,1200,1500,2200 [facility] Last Admin: 06/04/17 14:24 Dose: 20 mg Pharmacy Profile Note (Lidocaine Patch Remove*) 1 note N/A 2100 [facility] Last Admin: 06/03/17 20:35 Dose: 1 note Prednisone (Deltasone Tab*) 40 mg PO DAILY [facility] Last Admin: 06/04/17 08:20 Dose: 40 mg Senna (Senokot Tab*) 1 tab PO BID [facility] Last Admin: 06/04/17 08:20 Dose: Not Given Vital Signs: Temp Pulse Resp BP Pulse Ox 98.2 F 115 20 147/93 95 06/04/17 16:08 06/04/17 16:08 06/04/17 16:24 06/04/17 16:08 06/04/17 16:08 Appearance: Mildly uncomfortable appearing middle aged man in NAD Respiratory: Symmetrical Chest Expansion and Respiratory Effort, Clear to Auscultation Cardiovascular: RRR Abdominal: NL Sounds; No Tenderness; No Distention Extremities: No Edema Neurological: - - strength in LLE intact, sensation intact, DTRs present but difficult to assess Diagnostic Imaging: MRI LSpine - radiology read not yet available but per personal review pt appears to have severe impingement of the L lateral cord structures at the level of L3-4 Assess/Plan/Problems-Billing Assessment: This is a 56 yo gentleman with a h/o chronic back pain which was recently exacerbated who was admitted for pain control. - Patient Problems (1) Back pain Comment: Acute on chronic, pt reports an acute injury 05/21 with new L radicular pain MRI demonstrates severe impingement at L3-4 corresponding with his symptoms, briefly reviewed images with neurosurgery who will do a formal consult in the am No associated weakness, saddle anesthesia, or bowel/bladder incontinence Cont home doses of narcotics Added gabapentin and scheduled flexeril Corticosteroids will be continued (2) Full code status (3) DVT prophylaxis Comment: SQ heparin Status and Disposition: Inpatient. Pending neurosurgery consult
--- NOTE | 2017-06-04 18:28 | RAD ---
INDICATION: Left-sided radicular pain. COMPARISON: Comparison is made with a prior x-ray study of the lumbar spine from January 05, 2015. TECHNIQUE: Axial and sagittal T1 and T2 and coronal T2-weighted images of the lumbar spine were obtained. FINDINGS: The vertebra are in normal alignment. No significant focal bony abnormality or acute fracture is seen. There is deformity of the medial left iliac bone possibly related to remote trauma. At the L2-L3 level there is a mild broad-based disc bulge. No significant spinal canal or neural foraminal narrowing is seen. At the L3-L4 level there is a left posterolateral disc herniation. There appears to be an extruded disc fragment present. This causes compression of the thecal sac on the left side and compression of the left L4 nerve root in the lateral recess. There is also moderate neural foraminal narrowing on the left side possibly compromising the left L3 nerve root. The right neural foramen is mildly narrowed. At the L4-L5 level there is a mild broad-based disc bulge and mild hypertrophic changes within the facet joints. There is mild spinal canal narrowing. There is mild to moderate neural foraminal narrowing on the right side and mild neural foraminal narrowing on the left side. At the L5-S1 level there is a minimal broad-based disc bulge and mild to moderate hypertrophic changes within the facet joints. No spinal canal narrowing is present. There is mild neural foraminal narrowing on the left side. IMPRESSION: 1. DEGENERATIVE DISC DISEASE AND FACET OSTEOARTHRITIS DESCRIBED WITH CHANGES MOST PROMINENT AT THE L3-L4 LEVEL. AT THAT LEVEL THERE IS A LEFT POSTEROLATERAL EXTRUDED DISC HERNIATION WHICH COMPRESSES THE THECAL SAC AND THE LEFT L4 NERVE ROOT IN THE LATERAL RECESS. THERE IS ALSO MODERATE NARROWING OF THE LEFT NEURAL FORAMEN POSSIBLY COMPROMISING THE L3 NERVE ROOT. 2. DEFORMITY OF THE POSTERIOR LEFT ILIAC BONE POSSIBLY RELATED TO REMOTE TRAUMA.
[2017-06-04] MEDS: Acetaminophen TAB* 325 MG PO PRN (19:24)
[2017-06-04] MEDS: Amitriptyline TAB* 25 MG PO SCH (21:13)
[2017-06-04] MEDS: Lidocaine Patch REMOVE* 1 NOTE MISC SCH (21:15)
[2017-06-05] MEDS: Heparin VIAL(*) 5000 UNITS/ML VIAL (FIVE THOUSAND) SUBCUT SCH ×3 (05:59→21:31)
[2017-06-05] MEDS: Gabapentin CAP(*) 100 MG PO SCH ×2 (08:29→20:45)
[2017-06-05] MEDS: oxyCODONE SR TAB(*) 10 MG TAB.SR PO SCH ×2 (08:30→20:44)
[2017-06-05] MEDS: Cyclobenzaprine TAB* 10 MG PO SCH ×3 (08:30→20:45)
[2017-06-05] MEDS: predniSONE TAB* 20 MG PO SCH (08:30)
[2017-06-05] MEDS: Docusate CAP* 100 MG PO SCH ×3 (08:31→20:46)
[2017-06-05] MEDS: oxyCODONE TAB* 5 MG TAB PO SCH ×4 (08:31→21:27)
[2017-06-05] MEDS: Lidocaine PATCH 5%* 1 PATCH TRANSDERM SCH (08:35)
[2017-06-05] MEDS: Senna TAB PO SCH ×2 (08:38→20:46)
--- NOTE | 2017-06-05 10:59 | CONSULT ---
Consult Consult: Neurosurgery Consult Date of consult: 06/05/17 Date of admission: Referring provider: KONSTANTIN Ramon Reason for consult: Herniated nucleus pulposus L3-4 left HPI: This is a 56 year old with past medical history significant for who presented to the [facility] ED on 06/02/17 complaining of low back to left lower extremity pain that had slowly worsened over the preceding 2-3 weeks to the severity of being unable to ambulate. He states that he began feeling left sided discomfort about one month ago but it was two weeks ago after he tripped on a rock while carrying a heavy sink that the radiating LLE pain began and continued to worsen. He reports burning, stabbing pain beginning in the low back to the left buttock, hip, groin and anterior thigh to the knee. He is also experiencing muscle cramping in the left buttock and anterior thigh. Numbness of the LLE is present although not constant and is provoked by certain movements. He is most comfortable laying in the right lateral recumbent position. Movements to reposition in bed and standing exacerbate pain in the LLE. He attempted to stand and walk yesterday and was only able to take two steps secondary to severe pain. He has a history of crush injury to the pelvis at age 14 for which he experiences chronic pain and has been taking narcotic pain medication for several years. He reports that this pain is unlike the baseline pain. He denies weakness of the lower extremities. He denies numbness, tingling and pain in the RLE. While admitted, he has been treated with home dose of oxycodone, gabapentin and steroids, all of which he reports no change or improvement in pain. He has also been evaluated by physical therapy. MRI of the lumbar spine was available for review. Past medical history: 1. Basal cell carcinoma 2. Chronic low back pain 3. Pelvic injury with fractures at age 14 4. Cataract left eye 5. Retinal tear left eye Past surgical history: 1. Left cataract extraction 2. Left retinal tear repair 3. Tonsillectomy Home medications: 1. Oxycodone TAB(NF) [Oxycodone HCl 10 MG] 20 mg PO Q6H PRN 10/18/16 [History Confirmed 06/02/17] 2. oxyCODONE SR TAB(*) [Oxycontin 20 mg (*)] 30 mg PO BID 10/18/16 [History Confirmed 06/02/17] 3. Amitriptyline TAB* [Elavil TAB*] 10 mg PO BEDTIME 06/02/17 [History Confirmed 06/02/17] Allergies: 1. Avocado Social history: This patient lives at home alone. 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 He is a nonsmoker and does not consume alcohol. ROS: ROS completed and pertinent findings stated in HPI. All others negative. Physical exam: Vital Signs: Temp Pulse Resp BP Pulse Ox 98.0 F 101 18 116/85 97 06/05/17 07:49 06/05/17 07:49 06/05/17 10:29 06/05/17 07:49 06/05/17 07:49 General: Alert and oriented. Laying in bed; yelling out in pain with movements HEENT: Head is normocephalic and atraumatic. Right pupil 2mm, left 4mm. Gross hearing intact. Moist mucus membranes. Neck: Supple, symmetic. Nontender and no adenopathy. CV: Radial pulses 2+ and equal. Pedal pulses palpable. Lungs: Breathing is nonlabored and lungs are clear. Abdomen: Normoactive bowel sounds. Abdomen is moderately rounded, soft, nontender and nondistended. Neuro: Speech is clear and coherent. CN II-XII intact. Strength in bilateral lower extremities 5/5; pain with strength testing on LLE. Sensation intact throughout. Patellar reflex 2+ bilaterally. Femoral stretch positive on the left , negative on the right. Extremities: Limited ROM of LLE secondary to pain. Imagin. MRI of the lumbar spine on 06/04/17 shows large HNP L3-4 on the left. Assessment: This is a 56 year old male who presented with gradual worsening of LLE pain and numbness over the past 2 weeks after a lifting injury. Symptoms consistent with MRI finding of HNP L3-4 on the left. Neuro intact. Current treatment with medications has been ineffective. I will discuss this case with neurosurgeon Dr. Torres at [facility]. This case has been discussed with KONSTANTIN Ramon. Plan: 1.
--- NOTE | 2017-06-05 12:05 | PN ---
Subjective Date of Service: 06/05/17 Interval History: Patient reports no change overnight. He is comfortable at rest, but any movement is extremely painful. No CP, SOB, abd pain, n/v. Objective Active Medications: Acetaminophen (Tylenol Tab*) 650 mg PO Q6H PRN PRN Reason: PAIN Last Admin: 06/04/17 19:24 Dose: 650 mg Al Hydrox/Mg Hydrox/Simethicone (Maalox Plus*) 30 ml PO Q6H PRN PRN Reason: INDIGESTION Last Admin: 06/04/17 10:31 Dose: 30 ml Amitriptyline HCl (Elavil Tab*) 25 mg PO BEDTIME [facility] Last Admin: 06/04/17 21:13 Dose: 25 mg Calcium Carbonate (Tums*) 1,000 mg PO Q6H PRN PRN Reason: INDIGESTION Last Admin: 06/04/17 19:24 Dose: 1,000 mg Cyclobenzaprine HCl (Flexeril Tab*) 10 mg PO TID [facility] Last Admin: 06/05/17 08:30 Dose: 10 mg Docusate Sodium (Colace Cap*) 100 mg PO BID [facility] Last Admin: 06/05/17 08:35 Dose: Not Given Gabapentin (Neurontin Cap(*)) 100 mg PO BID [facility] Last Admin: 06/05/17 08:29 Dose: 100 mg Heparin Sodium (Porcine) (Heparin Vial(*)) 5,000 units SUBCUT Q8HR [facility] Last Admin: 06/05/17 05:59 Dose: 5,000 units Ibuprofen (Motrin Tab*) 600 mg PO Q6H PRN PRN Reason: PAIN Last Admin: 06/03/17 14:55 Dose: 600 mg Lidocaine (Lidoderm 5% Patch*) 1 patch TRANSDERM DAILY [facility] Last Admin: 06/05/17 08:35 Dose: 1 patch Magnesium Hydroxide (Milk Of Magnesia Liq*) 30 ml PO Q4H PRN PRN Reason: CONSTIPATION Ondansetron HCl (Zofran Inj*) 4 mg IV Q4H PRN PRN Reason: NAUSEA/VOMITING Last Admin: 06/02/17 20:47 Dose: 4 mg Oxycodone HCl (Oxycontin(*)) 30 mg PO BID [facility] Last Admin: 06/05/17 08:30 Dose: 30 mg Oxycodone HCl (Roxycodone Tab*) 20 mg PO 0900,1200,1500,2200 [facility] Last Admin: 06/05/17 11:53 Dose: 20 mg Pharmacy Profile Note (Lidocaine Patch Remove*) 1 note N/A 2100 [facility] Last Admin: 06/04/17 21:15 Dose: 1 note Prednisone (Deltasone Tab*) 40 mg PO DAILY [facility] Last Admin: 06/05/17 08:30 Dose: 40 mg Senna (Senokot Tab*) 1 tab PO BID [facility] Last Admin: 06/05/17 08:38 Dose: Not Given Vital Signs: Temp Pulse Resp BP Pulse Ox 98.0 F 101 18 116/85 97 06/05/17 07:49 06/05/17 07:49 06/05/17 11:53 06/05/17 07:49 06/05/17 07:49 Appearance: Well appearing middle aged gentleman in NAD Respiratory: Symmetrical Chest Expansion and Respiratory Effort, Clear to Auscultation Cardiovascular: NL Sounds; No Murmurs; No JVD, RRR Lymphatic: No Cervical Adenopathy Extremities: No Edema Neurological: Alert and Oriented x 3, - - strength and sensation intact, reduced ROM secondary to pain Diagnostic Imaging: MRI LSpine - L posterior lateral disc herniation at L3-4 with compression of thecal sac and L lateral L4 nerve root. Moderate narrowing of L neural foramen with some impingement of L3 nerve root. Assess/Plan/Problems-Billing Assessment: This is a 56 yo gentleman with a h/o chronic back pain which was recently exacerbated who was admitted for pain control. - Patient Problems (1) Back pain Comment: Acute on chronic, pt reports an acute injury 05/21 with new L radicular pain MRI demonstrates severe impingement at L3-4 corresponding with his symptoms Final recommendations from neurosurgery are pending No associated weakness, saddle anesthesia, or bowel/bladder incontinence but pain is severe with any movement Cont home doses of narcotics Added gabapentin and scheduled flexeril Corticosteroids will be continued (2) Full code status (3) DVT prophylaxis Comment: SQ heparin Status and Disposition: Inpatient. Pending neurosurgery recommendations
[2017-06-05] MEDS: Amitriptyline TAB* 25 MG PO SCH (20:45)
[2017-06-05] MEDS: Lidocaine Patch REMOVE* 1 NOTE MISC SCH (20:46)
[2017-06-06] MEDS: Heparin VIAL(*) 5000 UNITS/ML VIAL (FIVE THOUSAND) SUBCUT SCH ×2 (05:51→13:18)
[2017-06-06] MEDS: Lidocaine PATCH 5%* 1 PATCH TRANSDERM SCH (08:52)
[2017-06-06] MEDS: Gabapentin CAP(*) 100 MG PO SCH ×2 (08:53→20:11)
[2017-06-06] MEDS: oxyCODONE SR TAB(*) 10 MG TAB.SR PO SCH ×2 (08:54→20:11)
[2017-06-06] MEDS: predniSONE TAB* 20 MG PO SCH (08:55)
[2017-06-06] MEDS: Cyclobenzaprine TAB* 10 MG PO SCH ×3 (08:55→20:10)
[2017-06-06] MEDS: Senna TAB PO SCH ×2 (08:57→20:09)
[2017-06-06] MEDS: Docusate CAP* 100 MG PO SCH ×2 (08:57→20:10)
--- NOTE | 2017-06-06 09:02 | PN ---
Progress Note - Progress Note Date of Service: 06/06/17 SOAP: Subjective: [Left lower extremity pain radiating from left hip to groin and anterior thigh; unchanged since admission. Pain best when laying still and worse with movements in bed. Has been unable to ambulate secondary to pain. Intermittent numbness persists. He has not noticed improvement with prednisone, lidocaine patch and gabapentin. ] Objective: [ Vital Signs: Temp Pulse Resp BP Pulse Ox 98.0 F 90 17 146/87 99 06/06/17 07:44 06/06/17 07:44 06/06/17 07:46 06/06/17 07:44 06/06/17 07:44 General: Alert and oriented. Laying comfortably in bed. No distress. CV: Pedal pulses palpable and equal. Neuro: Strength 5/5 in bilateral lower extremities. Sensation intact throughout. Patellar reflex 2+ bilaterally. Extremities: ROM of LLE limited secondary to pain. ] Assessment: [Left lumbar radiculopathy consistent with HNP L3-4 left on MRI. He has experienced minimal improvement with medications at this point. Neuro intact. Pain remains the primary issue. I have discussed the case with neurosurgeon Dr. Torres and he recommends continuing prednisone and pain medications in addition to lumbar epidural steroid injection L3-4 left. The patient and I discussed the potential benefit of LESI and he would like to try this treatment. ] Plan: [1. Consult Dr. Houston for LESI L3-4 left. ]
[2017-06-06] MEDS: oxyCODONE TAB* 5 MG TAB PO SCH ×4 (09:07→22:27)
--- NOTE | 2017-06-06 12:24 | PN ---
Subjective Date of Service: 06/06/17 Interval History: Patient reports no changes in symptoms. Pain continues to be well controlled at rest and severe with movement. Neurosurgery has suggested an epidural steroid injection which anesthesia is planning to do this afternoon. No c/o weakness or incontinence. Objective Active Medications: Acetaminophen (Tylenol Tab*) 650 mg PO Q6H PRN PRN Reason: PAIN Last Admin: 06/04/17 19:24 Dose: 650 mg Al Hydrox/Mg Hydrox/Simethicone (Maalox Plus*) 30 ml PO Q6H PRN PRN Reason: INDIGESTION Last Admin: 06/04/17 10:31 Dose: 30 ml Amitriptyline HCl (Elavil Tab*) 25 mg PO BEDTIME [facility] Last Admin: 06/05/17 20:45 Dose: 25 mg Calcium Carbonate (Tums*) 1,000 mg PO Q6H PRN PRN Reason: INDIGESTION Last Admin: 06/04/17 19:24 Dose: 1,000 mg Cyclobenzaprine HCl (Flexeril Tab*) 10 mg PO TID [facility] Last Admin: 06/06/17 08:55 Dose: 10 mg Docusate Sodium (Colace Cap*) 100 mg PO BID [facility] Last Admin: 06/06/17 08:57 Dose: 100 mg Gabapentin (Neurontin Cap(*)) 100 mg PO BID [facility] Last Admin: 06/06/17 08:53 Dose: 100 mg Heparin Sodium (Porcine) (Heparin Vial(*)) 5,000 units SUBCUT Q8HR [facility] Last Admin: 06/06/17 05:51 Dose: 5,000 units Ibuprofen (Motrin Tab*) 600 mg PO Q6H PRN PRN Reason: PAIN Last Admin: 06/03/17 14:55 Dose: 600 mg Lidocaine (Lidoderm 5% Patch*) 1 patch TRANSDERM DAILY [facility] Last Admin: 06/06/17 08:52 Dose: 1 patch Magnesium Hydroxide (Milk Of Magnesia Liq*) 30 ml PO Q4H PRN PRN Reason: CONSTIPATION Ondansetron HCl (Zofran Inj*) 4 mg IV Q4H PRN PRN Reason: NAUSEA/VOMITING Last Admin: 06/02/17 20:47 Dose: 4 mg Oxycodone HCl (Oxycontin(*)) 30 mg PO BID [facility] Last Admin: 06/06/17 08:54 Dose: 30 mg Oxycodone HCl (Roxycodone Tab*) 20 mg PO 0900,1200,1500,2200 [facility] Last Admin: 06/06/17 11:32 Dose: 20 mg Pharmacy Profile Note (Lidocaine Patch Remove*) 1 note N/A 2100 [facility] Last Admin: 06/05/17 20:46 Dose: 1 note Prednisone (Deltasone Tab*) 40 mg PO DAILY [facility] Last Admin: 06/06/17 08:55 Dose: 40 mg Senna (Senokot Tab*) 1 tab PO BID [facility] Last Admin: 06/06/17 08:57 Dose: 1 tab Vital Signs: Temp Pulse Resp BP Pulse Ox 98.0 F 90 16 146/87 99 06/06/17 07:44 06/06/17 07:44 06/06/17 11:32 06/06/17 07:44 06/06/17 07:44 Appearance: Well appearing 56 yo gentleman lying comfortably in bed Respiratory: Symmetrical Chest Expansion and Respiratory Effort, Clear to Auscultation Cardiovascular: NL Sounds; No Murmurs; No JVD, RRR Abdominal: NL Sounds; No Tenderness; No Distention Extremities: No Edema Skin: No Rash or Ulcers Neurological: Alert and Oriented x 3, - - strength intact Diagnostic Imaging: MRI LSpine - L posterior lateral disc herniation at L3-4 with compression of thecal sac and L lateral L4 nerve root. Moderate narrowing of L neural foramen with some impingement of L3 nerve root. Assess/Plan/Problems-Billing Assessment: This is a 56 yo gentleman with a h/o chronic back pain which was recently exacerbated who was admitted for pain control. - Patient Problems (1) Back pain Comment: Acute on chronic, pt reports an acute injury 05/21 with new L radicular pain MRI demonstrates severe impingement at L3-4 corresponding with his symptoms Appreciate neurosurgery involvement No associated weakness, saddle anesthesia, or bowel/bladder incontinence but pain is severe with any movement Plan for epidural injection today and surgery next week Cont home doses of narcotics Added gabapentin and scheduled flexeril Corticosteroids will be continued (2) Full code status (3) DVT prophylaxis Comment: SQ heparin Status and Disposition: Inpatient. Pending epidural injection for this afternoon. Regarding discharge , he is unable to return home. Pending prior auth for short term nursing facility stay to bridge to surgery, otherwise he may be able to stay with his brother depending on his response to the epidural injection.
--- NOTE | 2017-06-06 18:48 | TRS ---
CC: Dr. Arita; Tentative Accepting Physician, Dr. Cervantes at [facility] Neurosurgery * TRANSFER SUMMARY DATE OF ADMISSION: 06/02/2017 TENTATIVE DATE OF TRANSFER: 06/06/17 DISCHARGE DIAGNOSIS: 1. Intractable back pain secondary to left herniated disc at the L3-4 level. SECONDARY DIAGNOSES: 1. History of chronic low back pain status post pelvic injury at age 14. 2. Status post tractor injury with multiple fractures to his pelvis requiring pelvic surgery and subsequent chronic pain. MEDICATION LIST: At the time of transfer: 1. Acetaminophen 650 mg p.o. every 6 hours p.r.n. pain or fever. 2. Maalox Plus 30 mL p.o. every 6 hours p.r.n. indigestion. 3. Amitriptyline 25 mg p.o. at bedtime. 4. Calcium carbonate 1000 mg p.o. every 6 hours p.r.n. indigestion. 5. Cyclobenzaprine 10 mg p.o. t.i.d. 6. Colace 100 mg p.o. b.i.d. 7. Gabapentin 100 mg p.o. b.i.d. 8. Heparin 5000 units subcutaneously t.i.d. 9. Ibuprofen 650 mg p.o. every 6 hours p.r.n. pain. 10. Lidoderm patch topical daily. 11. Milk of Magnesia 30 mL p.o. every 4 hours p.r.n. constipation. 12. Zofran 4 mg IV every 4 hours p.r.n. nausea. 13. OxyContin 30 mg p.o. b.i.d. 14. Oxycodone 20 mg p.o. 4x a day. 15. Prednisone 40 mg p.o. daily. 16. Senna 1 tablet p.o. b.i.d. HOSPITAL COURSE: Mr. Mckeon is a 56-year-old male with a past medical history as stated above that presented to the emergency room on 06/02/17 with complaints of severe pack pain. His pain actually had started on 05/21/17 after lifting a heavy object. He described the pain as severe radiating to his left hip and inner part of his thigh. He was prescribed steroids and discharged home , but the pain continued to progress and on 06/02/17 he returned to the emergency room as he had been unable to get out of bed. The pain is described as throbbing and shooting in his low back extending towards his left groin and inner thigh. He denied fevers, chills, night sweats. No urinary or bowel incontinence. He does have intermittent tingling on his left leg, but the leg is not weak. He is unable to move due to the severity of pain, but not weakness. For more details about his presentation I refer you to his history and physical. The patient was admitted for pain management and as his pain persisted, he had an MRI of the lumbar spine without contrast that showed degenerative disc disease and facet osteoarthritis, with changes most prominent at the L3-4 level. At that level there is a left posterolateral extruded disc herniation which compresses the thecal sac and the left L4 nerve root in the lateral recess. There is also moderate narrowing of the left neural foramen possibly compromising the L3 nerve root. There is deformity of the posterior left iliac bone possibly related to remote trauma. The patient's case was discussed with Neurosurgery coverage that we had in the hospital (KONSTANTIN Gutierrez/Dr. Malone neurosurgeon at [facility]). The initial plan was to continue pain management, but at this point we are at day #4 of his hospital stay and the patient's pain is controlled as long as he does not move in bed. He is unable even to roll to different positions without experiencing excruciating pain. I discussed the case with Dr. Malone again and he had recommended maybe changing the patient's pain medication to [place] and adding Toradol, but I see this would probably be a lateral change since the patient is already on oxycodone and prednisone. I am uncomfortable with keeping this patient in our facility without being seen by a neurosurgeon, so [facility] was contacted and the case was discussed with Dr. Cervantes. At the time of this dictation I am waiting for a call back from Dr. Cervantes, but the plan is to possibly transfer him to [facility] for neurosurgical evaluation and, if deemed indicated, surgical repair of his herniated disc. PHYSICAL EXAMINATION: Vital signs: Temperature 98.0. Heart rate is 90. Respiratory rate is 16. Oxygen saturation 99% on room air. Blood pressure is 146 /87. General: Patient is a pleasant middle aged male lying in bed in no acute distress. CVS: Normal S1, S2. Regular rate and rhythm. Chest: Breath sounds present bilaterally, no added sounds. Abdomen: Soft, nontender. Bowel sounds are present. Extremities: No edema. Neuro: Patient is alert, awake and oriented x3. He is able to move all 4 extremities. Left leg movement is limited not by weakness, but due to pain. Strength is grossly 5/5 and he does have pain with strength testing of his left leg. Sensation is intact throughout. Pathologic reflexes are present bilaterally. Straight leg raising is positive on the left. DIET: Regular diet. ACTIVITY: At this moment the patient can only tolerate bed rest. DISPOSITION: To [facility] for Neurosurgical evaluation. STATUS WHILE IN THE HOSPITAL: Inpatient. Please keep in mind, this is a summarized version of this patient's hospital stay. If you need more information, please feel free to call me at . The patient's full medical records will be sent with him on transfer. TIME SPENT: Approximately 50 minutes was spent to complete this discharge. [id number]/[facility] #: [id number] JOSE
--- NOTE | 2017-06-06 19:48 | PN ---
Hospitalist Progress Note HOSPITALIST ADDENDUM Case reviewed and d/w Bob PRYOR. Patient seen and examined at bedside. Patient's pain persists despite 4 days of medical therapy. Unable to move in bed. Case d/w Dr. Carlin at [place] and Dr. Cervantes at [facility] - both have similar opinions patient needs surgery, but not emergency surgery requiring transfer at this time. Both would be available to perform surgery next week. Will try epidural steroid injection for symptomatic relief in AM.
[2017-06-06] MEDS: Amitriptyline TAB* 25 MG PO SCH (20:10)
[2017-06-06] MEDS: Lidocaine Patch REMOVE* 1 NOTE MISC SCH (20:12)
[2017-06-07] MEDS ORDERED: Heparin VIAL(*) 5000 UNITS/ML VIAL (FIVE THOUSAND) SUBCUT SCH (06:00)
[2017-06-07] MEDS: Cyclobenzaprine TAB* 10 MG PO SCH ×2 (07:33→12:18)
[2017-06-07] MEDS: oxyCODONE SR TAB(*) 10 MG TAB.SR PO SCH (07:33)
[2017-06-07] MEDS: Gabapentin CAP(*) 100 MG PO SCH (07:34)
[2017-06-07] MEDS: oxyCODONE TAB* 5 MG TAB PO SCH ×2 (07:34→12:19)
[2017-06-07] MEDS: Docusate CAP* 100 MG PO SCH (07:35)
[2017-06-07] MEDS: predniSONE TAB* 20 MG PO SCH (07:35)
[2017-06-07] MEDS: Lidocaine PATCH 5%* 1 PATCH TRANSDERM SCH (07:35)
[2017-06-07] MEDS: Senna TAB PO SCH (07:35)
--- NOTE | 2017-06-07 11:42 | PM ---
PAIN TREATMENT CENTER NOTE: DATE OF CONSULT: 06/06/17 CHIEF COMPLAINT: Left back, buttock, left groin, and anterior thigh pain. HISTORY: The patient is a 56-year-old male who was admitted to [facility] on 06/02/17 with symptoms of radicular leg pain. The patient has a history of chronic pain syndrome with pelvic fracture when he was 14 and a pelvic repair and chronic pain since that time. He is presently being followed by Dr. Dupree for medical management of his chronic ongoing pain. He states his most recent pain did not start with any inciting injury. He presented to the emergency room on 05/21/17 and then had some x-rays taken he states and received a dose of steroids. He was sent home. He states the pain over the last 2 weeks has steadily increased. He has got a throbbing pain in his left groin from his left hip area into the anterior thigh. He states he is unable to walk because of the pain he is experiencing. He usually does not need a walking device, however right now he cannot ambulate secondary to pain. He states that his leg will give out and he will fall. The only position he is comfortable is lying flat on his back. He has been given oral pain medications , oral steroids, all without any significant improvement in his pain. An MRI was obtained on 06/02/17, which showed a large L3-4 disk herniation on the left side with a posterior lateral extruded disk compressing the thecal sac and the left L4 nerve root in the lateral recess. There is also moderate narrowing of the left neural foramina possibly compromising the left L3 nerve root. As I said, again the patient has had no relief with oxycodone, gabapentin, steroids. He has also been evaluated by physical therapy. The patient was seen by Richa Lux from the neurosurgery department and there was a phone call made to Dr. Torres at [place] and there was some discussion about the patient being a candidate for surgery given the degree of pain that he is experiencing. It was felt that Dr. Torres could not perform surgery until the end of the week or possibly next week so there was a thought of having an epidural steroid injection done in the interim. PAST MEDICAL HISTORY: Significant for 1. Pelvic fractures and injury secondary to trauma. 2. He has basal cell carcinoma removal. 3. Chronic low back pain. 4. Cataract repair on the left. 5. Left retinal tear repair. MEDICATIONS: At home were, 1. OxyContin 30 mg twice daily. 2. Oxycodone 20 mg every 6 hours. 3. Amitriptyline. ALLERGIES: AVOCADO. SOCIAL HISTORY: He lives alone. He does not drink or smoke or do illicit drugs. REVIEW OF SYSTEMS: Positive for the neurologic/musculoskeletal symptoms as described above. The remainder of the 14-point review of systems is negative. PHYSICAL EXAMINATION: He is lying flat in bed, in no apparent discomfort. Blood pressure is 146/87, pulse is 90, respirations are 17. He has 5/5 motor strength in his right lower extremity. He has good internal and external rotation of his right hip. The patellar reflexes are 2+ on the right. I am unable to elicit an Achilles reflex on the right or left. Patella reflex on the left was trace to 1+, internal rotation of his left hip elicits discomfort and external rotation does not. Straight leg raise is negative on the left and right. The patient is unable to sit up or stand secondary to pain and prefers not to, so I am unable to assess gait or back. ASSESSMENT AND PLAN: L3-4 disk herniation with extruded fragment with L4 nerve root compression. I talked to the patient today about treatment options. At this point, I do not think he will tolerate an epidural steroid injection without IV sedation as I cannot do that tonight. I did speak to him that they are talking about surgical intervention next week and the epidural steroid injections takes three to five days to work normally. If he is going to be undergoing surgery I think it is better to have it sooner than later. I am happy to perform an epidural steroid injection with IV sedation, if it is felt that is the best choice from a neurosurgical standpoint. If he is going to be having surgery in the next week I think he is better off having that done sooner than waiting. The patient was in agreement with this treatment and plan. I will talk with the hospitalist about my findings. [id number]/[facility] #: [id number] JOSE
[2017-06-07 13:48] VITALS: BP 137/82
--- NOTE | 2017-06-07 17:14 | DS ---
CC: Primary Care Provider, Dr. Arita * TRANSFER SUMMARY: ATTENDING PHYSICIAN: Dr. Corinne Goodwin * (dictated by KONSTANTIN Blackman) ADDENDUM: An addendum to transfer summary dictated by Dr. Corinne Goodwin on . No changes in patient's status overnight. He continues to be comfortable at rest with strength intact in the left lower extremity. He continues to have excruciating pain with movement. [facility] has accepted this patient in transfer. Accepting physician is Dr. Nunez. We are awaiting final bed assignment at this time with anticipated surgical intervention likely tomorrow. Please see full transfer summary dictated 06/06/17 for additional details including medication list. KONSTANTIN BLACKMAN [id number]/[facility] #: [id number] MTDD
== END 2017-06-07 13:45 | disposition short-term general hospital (02) | DRG 347 ==
LOC: ED 02:04 → MED 11:13 → OBSVTOIN 06-04 18:19
PROVIDERS: ADMIT Internal Medicine; ATTEND Internal Medicine
DX: M51.16 Intervertebral disc disorders with radiculopathy, lumbar region (principal); I10 Essential (primary) hypertension; G89.29 Other chronic pain; E78.00 Pure hypercholesterolemia, unspecified; J42 Unspecified chronic bronchitis; M19.90 Unspecified osteoarthritis, unspecified site; M51.36 Other intervertebral disc degeneration, lumbar region; M47.896 Other spondylosis, lumbar region; Z82.0 Family history of epilepsy and other diseases of the nervous system; Z91.018 Allergy to other foods; Z85.828 Personal history of other malignant neoplasm of skin; Z82.3 Family history of stroke; Z79.01 Long term (current) use of anticoagulants; Z79.52 Long term (current) use of systemic steroids; Z82.49 Family history of ischemic heart disease and other diseases of the circulatory system; Z83.3 Family history of diabetes mellitus; Z98.42 Cataract extraction status, left eye
CPT/HCPCS: 36415; 70030; 72148; 80307; A9270-GY; G0378; J1170; J1644; J1885; J2060; J2405; J2930; J7512

== ENCOUNTER 2018-01-17 14:09 | Observation (INO) | payer OTHER ==
[2018-01-17 14:44] LABS: ABS Basophils 0.1 10^3/ul (0-0.2); ABS Eosinophils 0.1 10^3/ul (0-0.6); ABS Lymphocytes 1.9 10^3/ul (1.0-4.8); ABS Monocytes 1.4 10^3/ul (0-0.8); ABS Neutrophils 7.6 10^3/ul (1.5-7.7); ABS Nucleated RBC 0 10^3/ul; Eosinophil % 0.6 % (0-6); Hematocrit 41 % (42-52); Hemoglobin 14.5 g/dl (14.0-18.0); Lymphocyte % 17.4 % (25-47); Mean Corpuscular HGB Conc 35 g/dl (31-36); Mean Corpuscular Hemoglobin 31 pg (27-31); Mean Corpuscular Volume 88 fL (80-94); Mean Platelet Volume 7.7 um3 (7.4-10.4); Nucleated Red Blood Cells % 0.1; Platelet Count 145 10^3/ul (150-450); Red Blood Count 4.65 10^6/ul (4.0-5.4); Red Cell Distribution Width 13 % (10.5-15); White Blood Count 11.1 10^3/ul (3.5-10.8)
[2018-01-17 15:11] LABS: EGFR Non-African American 82.1 (>60)
[2018-01-17] MEDS ORDERED: Iohexol 300* (CONTRAST) 10 ML SDV IV ONE (15:24)
--- NOTE | 2018-01-17 18:00 | RAD ---
CLINICAL HISTORY: Right lower quadrant pain. COMPARISON: None TECHNIQUE: Contrast enhanced CT examination of the abdomen and pelvis from the lung bases through the initial tuberosities. The patient received 144 mL Omnipaque 300 intravenously prior to imaging.The patient received oral contrast as well prior to imaging. FINDINGS: VISUALIZED LUNG BASES: The visualized lung bases are grossly clear. There is no pleural effusion. ABDOMEN AND PELVIS: The liver is homogenously hypodense relative to the spleen. There are no focal suspicious masses in the liver. The spleen, pancreas and adrenal glands are grossly normal in appearance. The gallbladder is normal. The kidneys are normal in appearance without focal mass, calcification or signs of hydronephrosis. Total contrast has progressed as far as the proximal transverse colon. The small and large bowel are not distended. The fluid-filled appendix measures 1.5 cm in greatest diameter (coronal image 67). There is infiltration of the periappendiceal fat with trace fluid in the dependent portion of the right paracolic gutter. More distally the gas and stool-filled colon does not exhibit any acute abnormalities. Scattered rectosigmoid diverticula are noted. There is no gross retroperitoneal or mesenteric lymphadenopathy. The pelvic viscera is normal in appearance. The mildly calcified abdominal aorta and iliac arteries are normal in course and diameter. Degenerative changes include multilevel loss of intervertebral disc height involving the lower thoracic and lumbar spine.There are no sinister bone lesions. IMPRESSION: 1. CT findings are consistent with acute appendicitis. 2. Likely hepatic steatosis. 3. Diverticulosis without focal inflammatory change of the colon to indicate diverticulitis. Appendicitis findings reported to Brie PRYOR over the telephone at 1756 hours on January 17, 2018
[2018-01-17] MEDS ORDERED: Ondansetron INJ* 2 MG/ML VIAL IV ONE (18:33)
[2018-01-17] MEDS ORDERED: Morphine INJ* 4 MG/ML 1 ML CARPUJECT IV ONE (18:33)
[2018-01-17] MEDS ORDERED: Morphine INJ* 4 MG/ML 1 ML SYRINGE (NEW SYRINGE VERSION) ONE (18:39)
[2018-01-17] MEDS ORDERED: Bupivacaine 0.25% SDV* 30 ML ONE (19:03)
[2018-01-17] MEDS ORDERED: fentaNYL* 50 MCG/ML 2 ML VIAL (100 MCG VIAL) ONE ×2 (19:07→21:12)
[2018-01-17] MEDS ORDERED: Rocuronium* 10 MG/ML VIAL ONE (19:08)
[2018-01-17] MEDS ORDERED: Sugammadex * 200 MG/2 ML VIAL IV PUSH ONE (19:10)
[2018-01-17] MEDS ORDERED: Succinylcholine* 20 MG/ML 10 ML VIAL ONE (19:11)
[2018-01-17] MEDS ORDERED: Propofol* 10 MG/ML 20 ML BTL IV PUSH ONE (19:11)
--- NOTE | 2018-01-17 19:15 | HP ---
H&P (Free Text) History and Physical: Surgery H & P Asked by ER provider to evaluate a pt. with abdominal pain and a CT suggestive of appendicitis. Mr. Mckeon is a 57 y.o. male who reports he first noticed abdominal pain ~36 hours ago. At that time the pain was general and felt like gas pain. Today he noticed the pain had worsened and localized to the RLQ. He had some nausea, denies vomiting, diarrhea or constipation. He denies dysuria. He had anorexia till this evening. He came to the ER where he had a CT scan which showed a thickened appx, and some stranding around the appendix. PMHx: Chronic back problems after broken back last May. Chronic pelvic pain after pelvic fracture at age 18. Meds: pain meds, gabapentin, pravastatin NKDA SH: neg. tob; quit EtOH 4 years ago; neg. IVDA ROS: denies, except for some HTN. FH: father had rectal cancer, DM, HTN. PE: general: WDWN somewhat overweight male in NAD Vital Signs 01/17/18 01/17/18 01/17/18 14:11 14:26 14:29 Temperature 97.1 F Pulse Rate 104 25 Respiratory 16 Rate Blood Pressure 142/99 140/93 (mmHg) O2 Sat by Pulse 98 86 Oximetry 01/17/18 01/17/18 01/17/18 14:30 15:00 16:11 Temperature Pulse Rate 101 82 Respiratory Rate Blood Pressure 146/105 (mmHg) O2 Sat by Pulse 94 96 Oximetry 01/17/18 01/17/18 01/17/18 16:50 18:29 18:32 Temperature 98.9 F Pulse Rate 86 89 Respiratory Rate Blood Pressure 148/85 (mmHg) O2 Sat by Pulse 94 98 Oximetry 01/17/18 01/17/18 01/17/18 18:46 19:00 19:07 Temperature 98.9 F Pulse Rate 92 89 Respiratory 20 20 Rate Blood Pressure 159/96 148/85 (mmHg) O2 Sat by Pulse 98 98 Oximetry HEENT: neg. cervical adenopathy; anicteric sclerae, moist oral mucosa lungs: clear to ausc. heart: reg. without murmurs abd: good BS, soft, tender in RLQ, no guarding or rebound ext: neg. cyanosis, edema Laboratory Results - last 24 hr 01/17/18 01/17/1801/17/18 14:35 14:35 14:35 WBC 11.1 H RBC 4.65 Hgb 14.5 Hct 41 L MCV 88 MCH 31 MCHC 35 RDW 13 Plt Count 145 L MPV 7.7 Neut % (Auto) 68.9 Lymph % (Auto) 17.4 L [place] % (Auto) 12.6 H Eos % (Auto) 0.6 Baso % (Auto) 0.5 Absolute Neuts (auto) 7.6 Absolute Lymphs (auto) 1.9 Absolute Monos (auto) 1.4 H Absolute Eos (auto) 0.1 Absolute Basos (auto) 0.1 Absolute Nucleated RBC 0 Nucleated RBC % 0.1 Sodium 134 L Potassium 4.0 Chloride 99 L Carbon Dioxide 24 Anion Gap 11 BUN 17 Creatinine 0.94 Est GFR ( Amer) 105.6 Est GFR (Non-Af Amer) 82.1 BUN/Creatinine Ratio 18.1 Glucose 158 H Lactic Acid 1.1 Calcium 9.7 Magnesium 1.8 L Total Bilirubin 0.80 AST 37 ALT 47 Alkaline Phosphatase 81 C-Reactive Protein 47.49 H Total Protein 7.7 Albumin 4.5 Globulin 3.2 Albumin/Globulin Ratio 1.4 Lipase 15 A/P: Probable appendicitis. Will proceed to OR for laparoscopic appendectomy. I have explained the nature of surgery, its risks, benefits, and alternatives. He understands and agrees to proceed. Juan R
[2018-01-17] MEDS ORDERED: Ondansetron INJ* 2 MG/ML VIAL ONE (19:28)
[2018-01-17] MEDS ORDERED: Sodium Citrate/Citric Acid* 15 ML UDC ONE (19:28)
[2018-01-17] MEDS ORDERED: Piperacillin/Tazobac ADVAN(*) 3.375 GM in NS 0.9% 50 ML* 50 ML IVPB ONE (19:38)
[2018-01-17] MEDS ORDERED: Acetaminophen IV 1GM/100ML * 1,000 MG/100 ML VIAL IVPB ONE (19:41)
[2018-01-17] MEDS ORDERED: fentaNYL* 50 MCG/ML 2 ML VIAL (100 MCG VIAL) IV PRN (19:41)
[2018-01-17] MEDS ORDERED: Naloxone* 0.4 MG/ML 1 ML VIAL IV PRN (19:41)
[2018-01-17] MEDS ORDERED: Ondansetron INJ* 2 MG/ML VIAL IV PRN (19:41)
--- NOTE | 2018-01-17 19:42 | ED ---
Abdominal Pain/Male - HPI Summary HPI Summary: The patient is a 57-year-old male presenting to the ED with the chief complaint of right lower quadrant pain 36 hours. Endorses nausea, but denies any vomiting. Denies any constipation or diarrhea. Patient takes 20 mg oxycodone every 6 hours for chronic pain. No alcohol use as of 4 years ago. Denies any smoking history. He was sent in by Dr. Naik wanted him to be evaluated for gallbladder pain. However, he endorses pain to the right lower quadrant with radiation into the right upper quadrant pain he denies any vomiting. Pain is currently a 7 out of 10, constant and stabbing. Denies any pain to the bilateral flanks and denies any urinary symptoms. He is afebrile and other vital signs are stable on arrival. He has not taken his dose of medication 4 hours. Last by mouth intake 6 hours ago. Eating and drinking okay. - History of Current Complaint Chief Complaint: EDAbdPain Stated Complaint: FLANK PAIN Time Seen by Provider: 01/17/18 14:17 Hx Obtained From: Patient Onset/Duration: Gradual Onset Timing: Constant Severity Initially: Moderate Severity Currently: Moderate Pain Intensity: 3 Pain Scale Used: 0-10 Numeric Location: Discrete At: RLQ Radiates: Yes Radiates to: Other - RUQ Character: Sharp Aggravating Factor(s): Movement Alleviating Factor(s): Position Associated Signs And Symptoms: Positive: Decreased Appetite - Risk Factors Testicular Torsion: Negative Cardiac Risk Factors: Negative - Allergies/Home Medications Allergies/Adverse Reactions: Allergies Allergy/AdvReac Type Severity Reaction Status Date / Time avocado Allergy Headache Verified 01/17/18 14:14 Home Medications: Home Medications DULoxetine DR CAP* [Cymbalta CAP*] 30 mg PO DAILY 01/17/18 [History Confirmed ] Gabapentin CAP(*) [Neurontin 100 mg CAP(*)] 100 mg PO QPM PRN MDD 100 mg [History Confirmed 01/17/18] Oxycodone HCl [Oxycodone HCl ER] 20 - 40 mg PO .Q4-6H PRN MDD 6 tabs 01/17/18 [ History Confirmed 01/17/18] Pravastatin (NF) [Pravachol (NF)] 20 mg PO DAILY 01/17/18 [History Confirmed ] PMH/Surg Hx/FS Hx/Imm Hx Previously Healthy: Yes Endocrine/Hematology History: Denies: Hx Anticoagulant Therapy, Hx Blood Disorders, Hx Diabetes, Hx Thyroid Disease Cardiovascular History: Reports: Hx Hypercholesterolemia, Hx Hypertension Denies: Hx Pacemaker/ICD Respiratory History: Reports: Hx Chronic Bronchitis Denies: Hx Asthma, Hx Chronic Obstructive Pulmonary Disease (COPD) GI History: Denies: Hx Ulcer Musculoskeletal History: Reports: Hx Arthritis, Hx Back Problems, Hx Orthopedic Injury - Fractured pelvis and low back at age 14yrs old Sensory History: Reports: Hx Cataracts - Left eye cataract, Hx Contacts or Glasses - Contacts, Hx Vision Problem - Torn Retina last 2013 Left eye Denies: Hx Hearing Aid Opthamlomology History: Reports: Hx Cataracts - Left eye cataract, Hx Contacts or Glasses - Contacts, Hx Vision Problem - Torn Retina last 2013 Left eye Psychiatric History: Denies: Hx Panic Disorder - Surgical History Surgery Procedure, Year, and Place: Tonsillectomy at age 4 yrs. RETINA REPAIR W / CATARACT IMPLANT LATER ON- BEING CLEARED VIA X-RAY - Immunization History Date of Tetanus Vaccine: utd Date of Influenza Vaccine: none Hx Pertussis Vaccination: No Immunizations Up to Date: Unable to Obtain/Confirm Infectious Disease History: No Infectious Disease History: Denies: Hx Clostridium Difficile, Hx Hepatitis, Hx Human Immunodeficiency Virus (HIV), Hx of Known/Suspected MRSA, Hx Shingles, Hx Tuberculosis, Hx Known/ Suspected VRE, Hx Known/Suspected VRSA, History Other Infectious Disease, Traveled Outside the [place] in Last 30 Days - Family History Known Family History: Positive: Cardiac Disease - Social History Occupation: Employed Full-time Lives: With Family Alcohol Use: None Alcohol Amount: 2 beer a couple times per month Hx Substance Use: No Substance Use Type: Reports: None, Prescribed Substance Use Comment - Amount & Last Used: oxycontin and oxycodone Hx Tobacco Use: No Smoking Status (MU): Never Smoked Tobacco Review of Systems Constitutional: Negative Negative: Fever, Chills, Fatigue, Skin Diaphoresis Eyes: Negative Cardiovascular: Negative Positive: Abdominal Pain, Nausea Genitourinary: Negative Positive: no symptoms reported, see HPI Skin: Negative Neurological: Negative All Other Systems Reviewed And Are Negative: Yes Physical Exam Triage Information Reviewed: Yes Vital Signs On Initial Exam: Initial Vitals Temp Pulse Resp BP Pulse Ox 97.1 F 104 16 142/99 98 01/17/18 14:11 01/17/18 14:11 01/17/18 14:11 01/17/18 14:11 01/17/18 14:11 Vital Signs Reviewed: Yes Appearance: Positive: Well-Appearing, Well-Nourished Skin: Positive: Warm, Skin Color Reflects Adequate Perfusion Head/Face: Positive: Normal Head/Face Inspection Eyes: Positive: EOMI, DHIRAJ, Conjunctiva Clear Neck: Positive: Supple, No Lymphadenopathy Respiratory/Lung Sounds: Positive: Clear to Auscultation, Breath Sounds Present Cardiovascular: Positive: RRR, Pulses are Symmetrical in both Upper and Lower Extremities Abdomen Description: Positive: Soft, McBurney's Point Tenderness. Negative: CVA Tenderness (R), CVA Tenderness (L), Peritoneal Signs, Pulsatile Mass, Splenomegaly Neurological: Positive: Normal, Alert, Oriented to Person Place, Time Psychiatric: Positive: Normal, Affect/Mood Appropriate AVPU Assessment: Alert Diagnostics - Vital Signs Vital Signs Temp Pulse Resp BP Pulse Ox 01/17/18 19:07 98.9 F 89 20 148/85 98 01/17/18 19:00 92 159/96 98 01/17/18 18:46 20 01/17/18 18:32 98.9 F 89 98 01/17/18 18:29 148/85 01/17/18 16:50 86 94 01/17/18 16:11 82 96 01/17/18 15:00 101 94 01/17/18 14:30 146/105 01/17/18 14:29 140/93 01/17/18 14:26 25 86 01/17/18 14:11 97.1 F 104 16 142/99 98 - Laboratory Lab Results: Lab Results 01/17/18 01/17/18 01/17/18 Range/Units 14:35 14:35 14:35 WBC 11.1 H (3.5-10.8) 10^3/ul RBC 4.65 (4.0-5.4) 10^6/ul Hgb 14.5 (14.0-18.0) g/dl Hct 41 L (42-52) % MCV 88 (80-94) fL MCH 31 (27-31) pg MCHC 35 (31-36) g/dl RDW 13 (10.5-15) % Plt Count 145 L (150-450) 10^3/ul MPV 7.7 (7.4-10.4) um3 Neut % (Auto) 68.9 (38-83) % Lymph % (Auto) 17.4 L (25-47) % [place] % (Auto) 12.6 H (0-7) % Eos % (Auto) 0.6 (0-6) % Baso % (Auto) 0.5 (0-2) % Absolute Neuts (auto) 7.6 (1.5-7.7) 10^3/ul Absolute Lymphs (auto) 1.9 (1.0-4.8) 10^3/ul Absolute Monos (auto) 1.4 H (0-0.8) 10^3/ul Absolute Eos (auto) 0.1 (0-0.6) 10^3/ul Absolute Basos (auto) 0.1 (0-0.2) 10^3/ul Absolute Nucleated RBC 0 10^3/ul Nucleated RBC % 0.1 Sodium 134 L (139-145) mmol/L Potassium 4.0 (3.5-5.0) mmol/L Chloride 99 L (101-111) mmol/L Carbon Dioxide 24 (22-32) mmol/L Anion Gap 11 (2-11) mmol/L BUN 17 (6-24) mg/dL Creatinine 0.94 (0.67-1.17) mg/dL Est GFR ( Amer) 105.6 (>60) Est GFR (Non-Af Amer) 82.1 (>60) BUN/Creatinine Ratio 18.1 (8-20) Glucose 158 H (70-100) mg/dL Lactic Acid 1.1 (0.5-2.0) mmol/L Calcium 9.7 (8.6-10.3) mg/dL Magnesium 1.8 L (1.9-2.7) mg/dL Total Bilirubin 0.80 (0.2-1.0) mg/dL AST 37 (13-39) U/L ALT 47 (7-52) U/L Alkaline Phosphatase 81 (34-104) U/L C-Reactive Protein 47.49 H (< 5.00) mg/L Total Protein 7.7 (6.4-8.9) g/dL Albumin 4.5 (3.2-5.2) g/dL Globulin 3.2 (2-4) g/dL Albumin/Globulin Ratio 1.4 (1-3) Lipase 15 (11.0-82.0) U/L Result Diagrams: 01/17/18 14:35 01/17/18 14:35 Lab Statement: Any lab studies that have been ordered have been reviewed, and results considered in the medical decision making process. Abdominal Pain Fem Course/Dx - Course Course Of Treatment: During the course of treatment, the patient is evaluated for possible appendicitis. CT abdomen and pelvis obtained which shows acute appendicitis. Dr. Salazar call-in results to myself to make aware. Called Dr. Brantley who agrees to come see patient. Right lower quadrant pain, burn is point tenderness on exam. Psoas positive, Rovsing positive, obturator not performed. Negative Boykin's sign. Denies any urinary symptoms. Afebrile and continues to maintain good vital signs. CRP elevated with a slight white count. - Diagnoses Differential Diagnosis/HQI/PQRI: Appendicitis Provider Diagnoses: Appendicitis Discharge - Sign-Out/Discharge Documenting (check all that apply): Discharge - Discharge Plan Condition: Stable Disposition: ADMITTED TO [facility] - Billing Disposition and Condition Condition: STABLE [place] [facility] [place]
[2018-01-17] MEDS ORDERED: Midazolam* 1 MG/ML 2 ML VIAL (2 MG) ONE (20:02)
[2018-01-17] MEDS ORDERED: Desflurane* 240 ML INH ONE (20:28)
[2018-01-17] MEDS ORDERED: HYDROmorphone INJ* 2 MG/ML CARPUJECT SYRINGE ONE (21:37)
[2018-01-17] MEDS: HYDROmorphone INJ* 1 MG/ML CARPUJECT SYRINGE IV PRN ×2 (21:39→21:52)
--- NOTE | 2018-01-17 21:39 | BRIEFOPN ---
Brief Operative Note - Surgery Procedures: 01/17/18 Op Note Pre-op dx: appendicitis Post-op dx: same Procedure: laparoscopic appendectomy Surgeon: Fercho Asst: none Anesth: general EBL: 50 cc Complications: none Scds on during case Abx: given pre-op Pt. tolerated procedure well and was transferred to in a stable condition. CLFoster
[2018-01-17] MEDS ORDERED: Acetaminophen IV 1GM/100ML * 100 ML ONE (21:41)
[2018-01-17] MEDS ORDERED: oxyCODONE/Acetamin 5/325 MG* TAB PO PRN ×2 (21:42)
[2018-01-17] MEDS ORDERED: Ibuprofen TAB* 800 MG PO PRN (21:42)
[2018-01-17] MEDS ORDERED: Piperacillin/Tazobac ADVAN(*) 3.375 GM in NS 0.9% 100 ML* 100 ML IVPB SCH (22:00)
[2018-01-17] MEDS ORDERED: oxyCODONE TAB* 5 MG TAB ONE ×2 (22:27→22:34)
[2018-01-17] MEDS: oxyCODONE TAB* 5 MG TAB PO PRN ×2 (22:29→22:36)
[2018-01-17] MEDS ORDERED: Piperacillin/Tazobactam 13.5 GM IV 24 hour continuous infusion IVPB SCH ×2 (23:55)
[2018-01-18] MEDS ORDERED: Gabapentin CAP(*) 100 MG PO PRN (01:25)
--- NOTE | 2018-01-18 07:47 | PN ---
Progress Note - Progress Note Date of Service: 01/18/18 Note: Surgery Mr. Mckeon feels better. He tolerated diet yesterday. Pain is controlled. Vital Signs 01/17/18 01/17/18 01/17/18 14:11 14:26 14:29 Temperature 97.1 F Pulse Rate 104 25 Respiratory 16 Rate Blood Pressure 142/99 140/93 (mmHg) O2 Sat by Pulse 98 86 Oximetry 01/17/18 01/17/18 01/17/18 14:30 15:00 16:11 Temperature Pulse Rate 101 82 Respiratory Rate Blood Pressure 146/105 (mmHg) O2 Sat by Pulse 94 96 Oximetry 01/17/18 01/17/18 01/17/18 16:50 18:29 18:32 Temperature 98.9 F Pulse Rate 86 89 Respiratory Rate Blood Pressure 148/85 (mmHg) O2 Sat by Pulse 94 98 Oximetry 01/17/18 01/17/18 01/17/18 18:46 19:00 19:07 Temperature 98.9 F Pulse Rate 92 89 Respiratory 20 20 Rate Blood Pressure 159/96 148/85 (mmHg) O2 Sat by Pulse 98 98 Oximetry 01/17/18 01/17/18 01/17/18 21:35 21:39 21:40 Temperature 96.4 F Pulse Rate 89 94 Respiratory 18 16 18 Rate Blood Pressure 186/106 185/99 (mmHg) O2 Sat by Pulse 100 98 Oximetry 01/17/18 01/17/18 01/17/18 21:45 21:50 21:52 Temperature Pulse Rate 87 82 Respiratory 18 16 16 Rate Blood Pressure 166/95 154/93 (mmHg) O2 Sat by Pulse 99 98 Oximetry 01/17/18 01/17/18 01/17/18 22:00 22:15 22:30 Temperature 97.2 F Pulse Rate 78 75 77 Respiratory 16 16 16 Rate Blood Pressure 147/89 159/94 152/93 (mmHg) O2 Sat by Pulse 98 100 99 Oximetry 01/17/18 01/17/18 01/17/18 22:46 23:06 23:30 Temperature 98.5 F 98.5 F Pulse Rate 81 83 Respiratory 16 16 16 Rate Blood Pressure 148/88 142/85 (mmHg) O2 Sat by Pulse 100 97 Oximetry 01/18/18 01/18/18 01/18/18 00:32 02:39 04:32 Temperature 98.4 F 97.9 F 98.2 F Pulse Rate 76 90 81 Respiratory 16 16 16 Rate Blood Pressure 144/81 134/81 130/72 (mmHg) O2 Sat by Pulse 95 98 99 Oximetry 01/18/18 01/18/18 04:43 06:57 Temperature Pulse Rate Respiratory 16 14 Rate Blood Pressure (mmHg) O2 Sat by Pulse Oximetry Abd: good BS, soft, non-tender Incisions: dressings intact. Intake & Output 01/17/18 01/18/18 01/18/18 22:59 06:59 14:59 Intake Total 50 850 Output Total 450 Balance 50 400 Weight 237 lb 227 lb Intake: IV Fluids 50 NS 100ML, Zosyn 3.375G 50 Oral 850 Output: Urine 450 Laboratory Results - last 24 hr 01/17/18 01/17/18 01/17/18 14:35 14:35 14:35 WBC 11.1 H RBC 4.65 Hgb 14.5 Hct 41 L MCV 88 MCH 31 MCHC 35 RDW 13 Plt Count 145 L MPV 7.7 Neut % (Auto) 68.9 Lymph % (Auto) 17.4 L [place] % (Auto) 12.6 H Eos % (Auto) 0.6 Baso % (Auto) 0.5 Absolute Neuts (auto) 7.6 Absolute Lymphs (auto) 1.9 Absolute Monos (auto) 1.4 H Absolute Eos (auto) 0.1 Absolute Basos (auto) 0.1 Absolute Nucleated RBC 0 Nucleated RBC % 0.1 Sodium 134 L Potassium 4.0 Chloride 99 L Carbon Dioxide 24 Anion Gap 11 BUN 17 Creatinine 0.94 Est GFR ( Amer) 105.6 Est GFR (Non-Af Amer) 82.1 BUN/Creatinine Ratio 18.1 Glucose 158 H Lactic Acid 1.1 Calcium 9.7 Magnesium 1.8 L Total Bilirubin 0.80 AST 37 ALT 47 Alkaline Phosphatase 81 C-Reactive Protein 47.49 H Total Protein 7.7 Albumin 4.5 Globulin 3.2 Albumin/Globulin Ratio 1.4 Lipase 15 A/P: POD#1 s/p lap appy; doing well, can go home on abx. CLFoster
[2018-01-18 07:56] VITALS: BP 137/74
[2018-01-18] MEDS ORDERED: DULoxetine DR CAP* 30 MG CAP.DR PO SCH (09:00)
[2018-01-18] MEDS ORDERED: Amoxicillin/Clavulanate TAB* 875 MG PO SCH (09:00)
[2018-01-18] MEDS ORDERED: Atorvastatin* 10 MG TAB PO SCH (09:00)
[2018-01-18] MEDS ORDERED: Pneumococcal *Vac Polyvalent 0.5 ML VIAL IM ONE (09:00)
--- NOTE | 2018-01-18 15:45 | OP ---
CC: [facility]; John Arita MD OPERATIVE REPORT: DATE OF OPERATION: 01/17/18 DATE OF : 56 SURGEON: Earline Brantley MD OFFICE CLEANER: There was no patient support assistant for this case. PRE-OP DIAGNOSIS: Appendicitis. POST-OP DIAGNOSIS: Appendicitis. OPERATIVE PROCEDURE: Laparoscopic appendectomy. INDICATIONS: Mr. Mckeon is a 57-year-old male who presented to the emergency room with abdominal pain prompting the plan for a CAT scan which is suggestive of appendicitis. Physical exam confirmed appe ndicitis, so he was prepared for surgery. DESCRIPTION OF PROCEDURE: He was brought to the operating room, placed on the OR table in the supine position and given general anesthesia. The abdomen was prepped and draped in the usual sterile fas hion. After infiltrating with local anesthetic, an incision was made in the infraumbilical area and subcutaneous tissue was divided bluntly. The fascia was grasped and incised and a 0 Vicryl stitch wa s placed on either side of the fascial incision. A trocar was inserted into the abdomen and the abdo men was insufflated. Once the abdomen was insufflated, it was noted that there were adhesions of om entum to the anterior abdominal wall anteriorly and laterally. These were taken down after a left fl ank port was inserted under direct visualization after infiltrating with local anesthetic. Through th is port, scissors could be inserted and the adhesions cut to allow access to the suprapubic area. On ce the adhesions were taken down and the suprapubic area was visualized under direct visualization, a fter infiltrating with local anesthetic, an incision was made and port was inserted in the suprapubic area as well. Inspection of the right lower quadrant revealed that the appendix appeared to be asce nding in a retrocecal fashion and therefore, dissection in this area was somewhat difficult. Using c ombination of sharp and electrocautery dissection, the base of the appendix was identified and graspe d and then the remainder of the appendix which ascended almost the full length of the ascending colon in the retrocecal location was dissected free by rotating the cecum medially as the dissection bulmaro nued to further expose the quite elongated appendix. That was noted to be acutely inflamed and adher ent in the retrocecal location. Once the appendix was freed up, the mesoappendix which was fairly langford perior was divided with an Endo SANDRA stapler and then the base of the appendix was divided with an End o SANDRA stapler. It took 2 firings of the Endo SANDRA at the base of the appendix to complete the divisio n. Then the appendix was placed in an EndoCatch bag and withdrawn from the abdomen through the infra umbilical port site. Brief inspection of the abdomen revealed that the liver was fatty and no other obvious abnormalities, although visualization was limited due to adipose. The right lower quadrant w as irrigated copiously with saline. There was some bleeding points from the anterior abdominal wall with adhesions that had been taken down, these were controlled with cautery. All ports were then with drawn under direct visualization and a previously placed 0 Vicryl was used to close the fascia of the infraumbilical port site and 4-0 Vicryl was used to close the skin of all incisions. There was some additional oozing from the left flank port site, so this was controlled with the 3-0 Surgipro figure -of- eight stitch. Steri-Strips and dry sterile dressing were applied to all incisions. The patient tolerated the procedure well and was transferred to Recovery in stable condition. [id number]/[facility] #: [id number]
== END 2018-01-18 09:45 | disposition home or self-care (01) ==
LOC: ED 14:09 → OR 19:33 → SSU 23:05
PROVIDERS: ADMIT Surgery; ATTEND Surgery
PROC: 0DTJ4ZZ Resection of Appendix, Percutaneous Endoscopic Approach (ICD-10-PCS; principal; 2018-01-17 19:45)
DX: K35.80 Unspecified acute appendicitis (principal); I10 Essential (primary) hypertension; E78.5 Hyperlipidemia, unspecified; Z79.899 Other long term (current) drug therapy
CPT/HCPCS: 36415; 74177; 80053; 83605; 83690; 83735; 85025; 86140; 88304; 99283; A9270-GY; C1776; G0378; J0330; J1170; J2250; J2270; J2405; J2543; J2704; J3010; Q9967

== ENCOUNTER 2018-04-05 12:32 | Emergency (ER) | payer OTHER ==
--- OUTSIDE RECORDS SUMMARY | 2018-04-05 13:30 | XMS REPORT ---
:1960 External Reference #:[id number] Author Organization [facility] Address [address] [place] [address] Phone [phone] Care Team Providers Name Role Phone John Arita MD Care Team Information Merchandise Adjustment Clerk Unavailable John Arita MD Primary Care Physician Unavailable Payers Type Date Identification Numbers Payment Provider Subscriber Medicaid Effective: 2016 Policy Number: [id number] [facility] Michael Mckeon PayID: [id number] [address] [address] [place] [address] Medicaid Effective: 2015 Policy Number: [id number] Medicaid [place] Michael Mckeon Expires: 2016 PayID: [id number] [address] [place] [address] Problems Date Description Provider Status Onset: 02/22/2015 Low back pain Marti Amaya M.D. Active Onset: 02/22/2015 Chronic pain syndrome Marti Amaya M.D. Active Onset: 03/10/2015 Impaired fasting glycaemia Marti Amaya M.D. Active Onset: 05/31/2015 Hyperlipidemia John Arita M.D. Active Onset: 09/01/2015 Mixed hyperlipidemia John Arita M.D. Active Onset: 02/01/2015 Acute bronchitis John Arita M.D. Resolved Resolved: 02/22/2015 Family History Date Family Member(s) Problem(s) Comments Father due to Etoh () Mother Alzheimer's Disease Social History Type Date Description Comments Cigarette Use Never Smoked Cigarettes ETOH Use Occasional Smoking Patient has never smoked Recreational Drug Use Denies Drug Use Allergies, Adverse Reactions, Alerts Date Description Reaction Status Severity Comments 01/05/2015 NKDA active Medications Medication Date Status Form Strength Qnty SIG Indications Ordering Provider Amitriptyline 01/31/ Active Tablets 25mg 60tabs 1 or 2 by F06.31 John A. HCL 2018 mouth at [place], bedtime M.D. Pravastatin 11/14/ Active Tablets 20mg 90tabs 1 by E78.2 John A. Sodium 2018 mouth [place], every day M.D. Oxycodone HCL / Active Tablets 20mg 1 by Unknown 0000 mouth three times a ay Oxycodone HCL / Active Tab ER 12H 20mg 1 by Unknown ER 0000 Abuse-Det mouth bid Doxycycline 08/09/ Hx Capsules 100mg 42caps 1 by John Banks Hyclate 2017 - mouth two [place], 08/30/ times a M.D. 2016 day Rosuvastatin 07/14/ Hx Tablets 5mg 90tabs 1 by E78.2 John Silver. Calcium 2017 - mouth [place], 11/14/ every day M.D. 2018 Prednisone 01/06/ Hx Tablets 50mg 5tabs 1 tab by R53.83 Anna Marie 2015 - mouth Michael, 01/17/ every day [employer] 2016 5 days Amitriptyline 10/20/ Hx Tablets 25mg 60tabs 1 or 2 by F06.31 John A. HCL 2014 - mouth at [place], 01/30/ bedtime M.D. 2017 Niacin 09/01/ Hx Tablets John A. 2014 - [place], 10/20/ M.D. 2014 Doxycycline 06/01/ Hx Tablets 100mg 42tabs 1 by John Silver. Monohydrate 2014 - mouth two [place], 06/07/ times a M.D. 2014 day Oxycodone HCL 02/22/ Hx Tab ER 12H 10mg 60tabs 1 tab by 724.2 John A. ER 2014 - Abuse-Det mouth [place], 09/01/ twice a M.D. 2014 day 338.4 No Active 02/01/2015 - Hx Unknown Medications 02/01/2015 Clarithromycin ER 02/01/2015 - Hx Tablets ER 500m 20ta 2 by mouth 466. John A. 02/11/2015 24HR g bs every day 0 [place], M.D. Oxycodone-Acetamino 02/01/2015 - Hx Tablets 5-32 60ta 1 by mouth 724. Marin Mayer phen 06/27/2017 5mg bs every 6 hours 2 [place], as needed M.D. pain (2 weeks supply) call dt Jacinda 01/12/2015 - Hx Tablets 4mg 30ta 1 by mouth Philip Graham, 02/01/2015 bs every 8 hours M.D. as needed nausea Oxycodone-Acetamino - Hx Tablets 5-32 60ta 1 by mouth 724. Philip Graham, johanne 02/01/2015 5mg bs every 6 hours 2 M.D. as needed pain Oxycodone HCL - Hx Tablets 10mg 1 by mouth Unknown 01/05/2015 twice a day Doxycycline Hyclate - Hx Capsules 1 by mouth Unknown 05/31/2015 twice a day for 14 days Fentanyl - Hx Patches 72HR 37.5 apply q 3 Unknown 10/20/2015 mcg/ days HR Oxycontin - Hx Tab ER 12H 20mg as needed Unknown 06/27/2017 Abuse-Det Lidocaine - Hx Patches 5% 1 patch Unknown 01/30/2018 topically 10hrs on, 10hrs off Immunizations CPT Code Status Date Vaccine Lot # [id number] Given 06/28/2017 Influenza Vac, Quadrivalent, Slit Virus, Im [id number] Given 09/01/2015 Influenza Vac, Quadrivalent, Slit Virus, Im [id number] Vital Signs Date Vital Result Comment 04/02/2018 BP Systolic 142 mmHg BP Diastolic 90 mmHg Heart Rate 88 /min Body Temperature 97.3 F Respiratory Rate 16 /min Height 70 inches 5'10" Weight 229.00 lb BMI (Body Mass Index) 32.9 kg/m2 01/31/2018 BP Systolic 122 mmHg BP Diastolic 76 mmHg Heart Rate 80 /min Body Temperature 98.1 F Respiratory Rate 16 /min Height 70 inches 5'10" Weight 230.00 lb BMI (Body Mass Index) 33.0 kg/m2 09/27/2017 BP Systolic 120 mmHg BP Diastolic 74 mmHg Heart Rate 80 /min Respiratory Rate 16 /min Height 70 inches 5'10" 09/17/2017 BP Systolic 130 mmHg BP Diastolic 80 mmHg Heart Rate 80 /min Body Temperature 97.9 F Respiratory Rate 16 /min Height 70 inches 5'10" Weight 238.00 lb BMI (Body Mass Index) 34.1 kg/m2 07/14/2017 BP Systolic 140 mmHg BP Diastolic 84 mmHg Heart Rate 72 /min Body Temperature 97.9 F Respiratory Rate 16 /min Height 70 inches 5'10" 06/28/2017 BP Systolic 126 mmHg BP Diastolic 60 mmHg Heart Rate 88 /min Body Temperature 97.9 F Respiratory Rate 16 /min Height 70 inches 5'10" Weight 231.00 lb BMI (Body Mass Index) 33.1 kg/m2 01/18/2016 BP Systolic 130 mmHg BP Diastolic 80 mmHg Heart Rate 76 /min Body Temperature 97.9 F Respiratory Rate 16 /min Height 70 inches 5'10" 01/07/2016 BP Systolic 144 mmHg BP Diastolic 96 mmHg Heart Rate 96 /min Body Temperature 97.2 F Respiratory Rate 16 /min Height 70 inches 5'10" Weight 216.25 lb BMI (Body Mass Index) 31.0 kg/m2 10/20/2015 BP Systolic 140 mmHg BP Diastolic 100 mmHg Heart Rate 100 /min Body Temperature 96.2 F Respiratory Rate 16 /min Height 70 inches 5'10" Weight 232.00 lb BMI (Body Mass Index) 33.3 kg/m2 09/01/2015 BP Systolic 130 mmHg BP Diastolic 80 mmHg Heart Rate 84 /min Body Temperature 95.7 F Respiratory Rate 16 /min Height 70 inches 5'10" Weight 228.00 lb BMI (Body Mass Index) 32.7 kg/m2 05/31/2015 BP Systolic 140 mmHg BP Diastolic 86 mmHg Heart Rate 80 /min Body Temperature 96.5 F Respiratory Rate 16 /min Height 70 inches 5'10" Weight 234.00 lb BMI (Body Mass Index) 33.6 kg/m2 05/03/2015 BP Systolic 148 mmHg BP Diastolic 100 mmHg Heart Rate 96 /min Body Temperature 97.5 F Respiratory Rate 16 /min Height 70 inches 5'10" Weight 231.00 lb BMI (Body Mass Index) 33.1 kg/m2 03/25/2015 BP Systolic 150 mmHg BP Diastolic 80 mmHg Heart Rate 100 /min Body Temperature 98.2 F Respiratory Rate 16 /min Height 70 inches 5'10" Weight 237.00 lb BMI (Body Mass Index) 34.0 kg/m2 02/01/2015 BP Systolic 150 mmHg BP Diastolic 80 mmHg Heart Rate 100 /min Body Temperature 97.8 F Respiratory Rate 20 /min O2 % BldC Oximetry 98 % Height 70 inches 5'10" Weight 230.00 lb BMI (Body Mass Index) 33.0 kg/m2 01/05/2015 BP Systolic 144 mmHg BP Diastolic 96 mmHg Heart Rate 88 /min Body Temperature 96.6 F Respiratory Rate 18 /min Height 70 inches 5'10" Weight 132.38 lb BMI (Body Mass Index) 19.0 kg/m2 Results Test Date Test Result H/L Range Note CBC Auto Diff 01/17/2018 White Blood Count 11.1 10^3/uL High 3.5-10.8 Red Blood Count 4.65 10^6/uL 4.0-5.4 Hemoglobin 14.5 g/dL 14.0-18.0 Hematocrit 41 % Low 42-52 Mean Corpuscular Volume 88 fL 80-94 Mean Corpuscular Hemoglobin 31 pg 27-31 Mean Corpuscular HGB Conc 35 g/dL 31-36 Red Cell Distribution Width 13 % 10.5-15 Platelet Count 145 10^3/uL Low 150-450 Mean Platelet Volume 7.7 um3 7.4-10.4 Abs Neutrophils 7.6 10^3/uL 1.5-7.7 Abs Lymphocytes 1.9 10^3/uL 1.0-4.8 Abs Monocytes 1.4 10^3/uL High 0-0.8 Abs Eosinophils 0.1 10^3/uL 0-0.6 Abs Basophils 0.1 10^3/uL 0-0.2 Abs Nucleated RBC 0 10^3/uL Granulocyte % 68.9 % 38-83 Lymphocyte % 17.4 % Low 25-47 Monocyte % 12.6 % High 0-7 Eosinophil % 0.6 % 0-6 Basophil % 0.5 % 0-2 Nucleated Red Blood Cells % 0.1 Comp Metabolic Panel 01/17/2018 Sodium 134 mmol/L Low 139-145 Potassium 4.0 mmol/L 3.5-5.0 Chloride 99 mmol/L Low 101-111 Co2 Carbon Dioxide 24 mmol/L 22-32 Anion Gap 11 mmol/L 2-11 Glucose 158 mg/dL High 70-100 Blood Urea Nitrogen 17 mg/dL 6-24 Creatinine 0.94 mg/dL 0.67-1.17 BUN/Creatinine Ratio 18.1 8-20 Calcium 9.7 mg/dL 8.6-10.3 Total Protein 7.7 g/dL 6.4-8.9 Albumin 4.5 g/dL 3.2-5.2 Globulin 3.2 g/dL 2-4 Albumin/Globulin Ratio 1.4 1-3 Total Bilirubin 0.80 mg/dL 0.2-1.0 Alkaline Phosphatase 81 U/L 34-104 Alt 47 U/L 7-52 Ast 37 U/L 13-39 Egfr Non- 82.1 >60 Egfr 105.6 >60 1 Laboratory test finding 01/17/2018 Magnesium 1.8 mg/dL Low 1.9-2.7 Lipase 15 U/L 11.0-82.0 C Reactive Protein 47.49 mg/L High < 5.00 2 Lactic Acid 1.1 mmol/L 0.5-2.0 3 Alk Phos Isoenzyme 09/17/2017 Alkaline Phosphatase, S 110 IU/L 39-117 4 Liver Fraction: 26 % 13-88 4 Bone Fraction: 46 % 12-68 4 Intestinal Frac.: 28 % High 0-18 4, 5 Laboratory test finding 09/17/2017 Hemoglobin A1c (Fma) 6.7 % High 4.1- 5.7 Lipid Profile 09/17/2017 Cholesterol 167 mg/dL 120-200 Triglycerides 186 mg/dL 30-200 HDL Cholesterol 37 mg/dL 30-70 LDL (Calculated) 93 CALC 0-129 VLDL Cholesterol 37 mg/dL 0-50 HDL Risk Factor 4.5 CALC High 0.0-4.4 Comprehensive Metabolic Prof 09/17/2017 Sodium 138 mEq/L 134-149 Potassium 4.4 mEq/L 3.6-5.5 Chloride 102 mEq/L 94-112 Carbon Dioxide 24 mEq/L 21-32 Glucose 182 mg/dL High 70-105 6 BUN 10 mg/dL 6-26 Creatinine 1.0 mg/dL 0.6-1.4 BUN/Creat Ratio 10.0 CALC 8.0-36.0 Calcium 9.9 mg/dL 8.6-10.2 Total Protein 7.2 g/dL 6.4-8.3 Albumin 4.6 g/dL 3.8-5.5 Globulin 2.6 g/dL 2.0-4.8 A/G Ratio 1.8 CALC 0.6-2.3 Alk. Phosphatase 103 U/L High 22-95 Alt (SGPT) 86 U/L High 7-35 Ast (Sgot) 68 U/L High 5-34 Total Bilirubin 0.7 mg/dL 0.2-1.3 GFR Non- >60 ml/min/1.73m^ >=60 GFR >60 ml/min/1.73m^ >=60 Laboratory test finding 06/28/2017 Hemoglobin A1c (Fma) 6.3 % High 4.1- 5.7 Lipid Profile 06/28/2017 Cholesterol 256 mg/dL High 120-200 Triglycerides 376 mg/dL High 30-200 HDL Cholesterol 41 mg/dL 30-70 LDL (Calculated) 140 CALC High 0-129 VLDL Cholesterol 75 mg/dL High 0-50 HDL Risk Factor 6.2 CALC High 0.0-4.4 Comprehensive Metabolic Prof 06/28/2017 Sodium 139 mEq/L 134-149 Potassium 4.4 mEq/L 3.6-5.5 Chloride 101 mEq/L 94-112 Carbon Dioxide 24 mEq/L 21-32 Glucose 189 mg/dL High 70-105 BUN 16 mg/dL 6-26 Creatinine 1.0 mg/dL 0.6-1.4 BUN/Creat Ratio 16.0 CALC 8.0-36.0 Calcium 9.8 mg/dL 8.6-10.2 Total Protein 7.3 g/dL 6.4-8.3 Albumin 4.5 g/dL 3.8-5.5 Globulin 2.8 g/dL 2.0-4.8 A/G Ratio 1.6 CALC 0.6-2.3 Alk. Phosphatase 92 U/L 22-95 Alt (SGPT) 67 U/L High 7-35 Ast (Sgot) 54 U/L High 5-34 Total Bilirubin 0.4 mg/dL 0.2-1.3 GFR Non- >60 ml/min/1.73m^ >=60 GFR >60 ml/min/1.73m^ >=60 Laboratory test finding 06/28/2017 PSA 0.2 ng/mL 0.0-4.0 LDL, Direct 152 mg/dL High 0-130 Urine Drug SCR ED 06/02/2017 Amphetamine Ur Screen None Detected None Detect & [facility] Barbiturates Urine Screen None Detected None Detect Benzodiazepine Urine Screen None Detected None Detect Urine Cannabinoids Screen None Detected None Detect Urine Cocaine Screen None Detected None Detect Urine Opiates Screen Presumptive Posi <SEE NOTE> None Detect 7 Urine Phencyclidine Screen None Detected None Detect 8 Laboratory test finding 01/07/2016 Sedimentation Rate-Westergren 11 mm/hr 0-30 9 TSH 2.710 uIU/mL 0.450-4.500 9 CBC With Differential/Platelet 01/07/2016 WBC 6.7 x10E3/uL 3.4-10.8 9 RBC 4.95 x10E6/uL 4.14-5.80 9 Hemoglobin 14.8 g/dL 12.6-17.7 9 Hematocrit 43.5 % 37.5-51.0 9 MCV 88 fL 79-97 9 MCH 29.9 pg 26.6-33.0 9 MCHC 34.0 g/dL 31.5-35.7 9 RDW 13.9 % 12.3-15.4 9 Platelets 228 x10E3/uL 150-379 9 Neutrophils 37 % 9 Lymphs 46 % 9 Monocytes 13 % 9 Eos 3 % 9 Basos 1 % 9 Immature Cells TNP 9 Neutrophils (Absolute) 2.4 x10E3/uL 1.4-7.0 9 Lymphs (Absolute) 3.1 x10E3/uL 0.7-3.1 9 Monocytes(Absolute) 0.9 x10E3/uL 0.1-0.9 9 Eos (Absolute) 0.2 x10E3/uL 0.0-0.4 9 Baso (Absolute) 0.0 x10E3/uL 0.0-0.2 9 Immature Granulocytes 0 % 9 Immature Grans (Abs) 0.0 x10E3/uL 0.0-0.1 9 NRBC TNP 9 Hematology Comments: TNP 9 Lyme AB/Western Blot 01/07/2016 Lyme IgG/IgM Ab <0.91 ISR 0.00-0.90 9 , 10 Reflex Lyme Disease Ab, 01/07/2016 Lyme Disease AB 0.88 index High 0.00-0.79 9 Quant, IgM Quant Igm IgG P93 Ab. Absent 9 IgG P66 Ab. Absent 9 IgG P58 Ab. Absent 9 IgG P45 Ab. Absent 9 IgG P41 Ab. Present 9 IgG P39 Ab. Absent 9 IgG P30 Ab. Absent 9 IgG P28 Ab. Absent 9 IgG P23 Ab. Absent 9 IgG P18 Ab. Absent 9 Lyme IgG WB Interp. Negative 9, 11 IgM P41 Ab. Absent 9 IgM P39 Ab. Absent 9 IgM P23 Ab. Absent 9 Lyme IgM WB Interp. Negative 9, 12 Hepatitis Panel, Acute 12/20/2015 Hep A Ab, IgM Negative Negative 13 HBsAg Screen Negative Negative 13 Hep B Core Ab, IgM Negative Negative 13 Hep C Virus Ab <0.1 s/coratio 0.0-0.9 13, 14 Hepatic 12/20/2015 Total Protein 7.4 g/dL 6.4-8.3 Albumin 4.7 g/dL 3.8-5.5 Globulin 2.7 g/dL 2.0-4.8 A/G Ratio 1.7 CALC 0.6-2.3 Alk. Phosphatase 67 U/L 22-95 Alt (SGPT) 51 U/L High 7-35 15 Ast (Sgot) 40 U/L High 5-34 16 Total Bilirubin 0.5 mg/dL 0.2-1.3 Direct Bilirubn 0.2 mg/dL 0.0-0.6 Indirect Bilirubin 0.30 mg/dL 0.10-1.00 Complete Blood Count 12/20/2015 WBC 7.6 x10^3/UL 3.6-9.6 RBC 4.45 x10^6/UL 3.90-5.70 HGB 14.0 g/dL 12.1-17.2 HCT 40 % 36-50 MCV 91.0 fL 82.2-97.4 MCH 31.4 pg 27.6-33.3 MCHC 34.6 g/dL 33.0-35.5 RDW 14.2 % High 11.6-13.7 PLT 210 x10^3/UL 150-400 MPV 7.2 fL Low 7.4-10.4 Gran # 4.2 x10^3/UL 1.5-7.2 Lymph# 3.0 x10^3/UL 0.7-4.9 Bosque# 0.4 x10^3/UL 0.1-0.9 Gran % 54.1 % 42.2-75.2 Lymph % 40.2 % 20.5-51.1 Bosque% 5.7 % 1.7-9.3 Hepatic 09/01/2015 Total Protein 7.6 g/dL 6.4-8.3 Albumin 4.9 g/dL 3.8-5.5 Globulin 2.7 g/dL 2.0-4.8 A/G Ratio 1.8 CALC 0.6-2.3 Alk. Phosphatase 64 U/L 22-95 Alt (SGPT) 45 U/L High 7-35 Ast (Sgot) 36 U/L High 5-34 Total Bilirubin 0.8 mg/dL 0.2-1.3 Direct Bilirubn 0.3 mg/dL 0.0-0.6 Indirect Bilirubin 0.50 mg/dL 0.10-1.00 Lipid Profile 09/01/2015 Cholesterol 227 mg/dL High 120-200 Triglycerides 245 mg/dL High 30-200 HDL Cholesterol 37 mg/dL 30-70 LDL (Calculated) 141 CALC High 0-129 VLDL Cholesterol 49 mg/dL 0-50 HDL Risk Factor 6.1 CALC High 0.0-4.4 Laboratory test finding 09/01/2015 Hemoglobin A1c 5.8 % High 4.1-5.7 (Fma/CMC,CX) Laboratory test finding 05/25/2015 Reference Lab Test . 17 Lipid Profile 05/25/2015 Cholesterol 232 mg/dL High 120-200 Triglycerides 250 mg/dL High 30-200 HDL Cholesterol 32 mg/dL 30-70 LDL (Calculated) 150 CALC High 0-129 VLDL Cholesterol 50 mg/dL 0-50 HDL Risk Factor 7.3 CALC High 0.0-4.4 Comprehensive Metabolic Prof 05/25/2015 Sodium 137 mEq/L 134-149 Potassium 4.1 mEq/L 3.6-5.5 Chloride 101 mEq/L 94-112 Carbon Dioxide 28 mEq/L 21-32 Glucose 131 mg/dL High 70-105 18 BUN 24 mg/dL 6-26 Creatinine 1.1 mg/dL 0.6-1.4 BUN/Creat Ratio 21.8 CALC 8.0-36.0 Calcium 9.6 mg/dL 8.6-10.2 Total Protein 7.1 g/dL 6.4-8.3 Albumin 4.7 g/dL 3.8-5.5 Globulin 2.4 g/dL 2.0-4.8 A/G Ratio 2.0 CALC 0.6-2.3 Alk. Phosphatase 65 U/L 22-95 Alt (SGPT) 49 U/L High 7-35 19 Ast (Sgot) 31 U/L 5-34 Total Bilirubin 0.7 mg/dL 0.2-1.3 Laboratory test finding 05/25/2015 LDL, Direct 141 mg/dL High 0-130 Ehrlichia Igg/Igm Ifa 05/25/2015 Anaplasma phagocytophila TNP 20 IgG Ehrlichia chaffeensis IgG AB <1:64 titer <1:64 21 Lyme Western Blot 05/25/2015 Lyme Disease IgG Ab WB Negative Negative Lyme Disease IgG Bands Present p41, kDa Lyme Disease IgM Ab WB Positive Negative Lyme Disease IgM Bands Present p41, p39, p23, kDa Lyme Disease Interpretation See Comment 22 Toxassure Select 13 (MW) 03/10/2015 Report Summary FINAL 23 PDF Comment Laboratory test finding 03/09/2015 Hemoglobin A1c 6.1 % High 4.1-5.7 (Fma/CMC,CX) Lipid Profile 03/09/2015 Cholesterol 235 mg/dL High 120-200 Triglycerides 183 mg/dL 30-200 HDL Cholesterol 36 mg/dL 30-70 LDL (Calculated) 162 CALC High 0-129 VLDL Cholesterol 37 mg/dL 0-50 HDL Risk Factor 6.5 CALC High 0.0-4.4 Comprehensive Metabolic Prof 03/09/2015 Sodium 138 mEq/L 134-149 Potassium 4.2 mEq/L 3.6-5.5 Chloride 100 mEq/L 94-112 Carbon Dioxide 23 mEq/L 21-32 Glucose 169 mg/dL High 70-105 24 BUN 23 mg/dL 6-26 Creatinine 1.2 mg/dL 0.6-1.4 BUN/Creat Ratio 19.2 CALC 8.0-36.0 Calcium 9.4 mg/dL 8.6-10.2 Total Protein 7.1 g/dL 6.4-8.3 Albumin 4.5 g/dL 3.8-5.5 Globulin 2.6 g/dL 2.0-4.8 A/G Ratio 1.7 CALC 0.6-2.3 Alk. Phosphatase 66 U/L 22-95 Alt (SGPT) 59 U/L High 7-35 25 Ast (Sgot) 34 U/L 5-34 Total Bilirubin 0.5 mg/dL 0.2-1.3 Complete Blood Count 03/09/2015 WBC 5.9 x10^3/UL 3.6-9.6 RBC 4.74 x10^6/UL 3.90-5.70 HGB 14.7 g/dL 12.1-17.2 HCT 43 % 36-50 MCV 91.0 fL 82.2-97.4 MCH 31.0 pg 27.6-33.3 MCHC 34.0 g/dL 33.0-35.5 RDW 14.7 % High 11.6-13.7 PLT 189 x10^3/UL 150-400 MPV 7.0 fL Low 7.4-10.4 Gran # 3.4 x10^3/UL 1.5-7.2 Lymph# 2.3 x10^3/UL 0.7-4.9 Bosque# 0.2 x10^3/UL 0.1-0.9 Gran % 55.6 % 42.2-75.2 Lymph % 39.5 % 20.5-51.1 Bosque% 4.9 % 1.7-9.3 1 Because ethnic data is not always readily available, this report includes an eGFR for both -Americans and non- Americans. The National Kidney Disease Education Program (NKDEP) does not endorse the use of the MDRD equation for patients that are not between the ages of 18 and 70, are , have extremes of body size, muscle mass, or nutritional status, or are non- or non-. According to the National Kidney Foundation, irrespective of diagnosis, the stage of the disease is based on the level of kidney function: Stage Description GFR(mL/min/1.73 m(2)) 1 Kidney damage with normal or decreased GFR 90 2 Kidney damage with mild decrease in GFR 60-89 3 Moderate decrease in GFR 30-59 4 Severe decrease in GFR 15-29 5 Kidney failure <15 (or dialysis) 2 Acute inflammation: >10.00 3 [facility] Severe Sepsis and Septic Shock Management Bundle Measure requires all lactic acids initially measuring >2.0 mmol/L be repeated. 4 1 sst 5 Intestinal alkaline phosphatase is seen normally in the serum of subjects who have B or O blood types, especially after a fatty meal. Pathologically the band may be present in perforation of the bowel, ulcerative disease of the intestine and faintly in liver cirrhosis. Acute infarction of the intestine will cause a release of intestinal ALP from the mucosa. Large erosive or ulcerative lesions of the stomach, duodenum or other small intestinal areas, or colon may result in an elevation of the serum ALP level. The small intestinal lesions associated with malabsorption are associated with an elevation of the serum intestinal ALP level only if there is an erosive or ulcerative mucosal lesion. 6 consistent w/ previous results 7 Presumptive Positive Presumptive positive results are unconfirmed. 8 The urine specimen was tested at the listed cutoffs: Drug class test level (ng/mL) Amphetamines 500 Barbiturates 200 Benzodiazepine metabolites 200 Cocaine metabolites 150 Cannabinoids 50 Opiates 300 Pcp 25 Specimen was received without chain of custody. Results should be used for medical purposes only. 9 2 SST 10 Negative <0.91 Equivocal 0.91 - 1.09 Positive >1.09 11 Positive: 5 of the following Borrelia-specific bands: 18,23,28,30,39,41,45,58, 66, and 93. Negative: No bands or banding patterns which do not meet positive criteria. 12 Note: An equivocal or positive EIA result followed by a negative Western Blot result is considered NEGATIVE. An equivocal or positive EIA result followed by a positive Western Blot is considered POSITIVE by the CDC. Positive: 2 of the following bands: 23,39 or 41 Negative: No bands or banding patterns which do not meet positive criteria. Criteria for positivity are those recommended by CDC/ASTPHLD. p23=Osp C, s01=gwbogkkaf Note: Sera from individuals with the following may cross react in the Lyme Western Blot assays: other spirochetal diseases (periodontal disease, leptospirosis, relapsing fever, yaws, and pinta); connective autoimmune (Rheumatoid Arthritis and Systemic Lupus Erythematosus and also individuals with Antinuclear Antibody); other infections (Zinc Spotted Fever; Leticia-Terry Virus, and Cytomegalovirus). 13 1 SST 14 Negative: < 0.8 Indeterminate: 0.8 - 0.9 Positive: > 0.9 The CDC recommends that a positive HCV antibody result be followed up with a HCV Nucleic Acid Amplification test (455064). 15 consistent w/ previous results 16 consistent w/ previous results 17 A. phagocytophilum Ab, IgG <1:80 <1:80 INTERPRETIVE INFORMATION: A. phagocytophilum (HGA) Antibody, IgG Less than 1:80 - No significant level of IgG antibodies to A. phagocytophilum detected. Greater than or equal to 1:80 - Suggestive of a recent or past infection with A. phagocytophilum. Test developed and characteristics determined by [facility]. See Compliance Statement B: [employer] Test Performed by: [facility] [address] [place] [address] [place] [id number] Dealmaker: Abner Romo II, M.D.,Ph.D 18 RESULTS VERIFIED BY REPEAT ANALYSIS 19 RESULTS VERIFIED BY REPEAT ANALYSIS 20 Anaplasma phagocytophilum Ab, IgG,S was cancelled on 06/01/2015 at 11:24; Assay temporarily down. Specimen forwarded to [employer]. 21 ADDITIONAL INFORMATION Analyte Specific Reagent: This test was developed and its performance characteristics determined by [facility]. It has not been cleared or approved by the U.S. Food and Drug Administration. Test Performed by: [facility] [place] [address] Dealmaker: Abner Romo II, M.D., Ph.D. 22 Consistent with early infection with Borrelia burgdorferi. A new serum specimen should be submitted in 14-21 days to demonstrate seroconversion of IgG. IgM blot criteria is of diagnostic utility only during the first 4 weeks of early Lyme disease. ADDITIONAL INFORMATION CDC criteria require >=5 bands for IgG or >=2 bands for IgM for the Immunoblot to be considered positive. Bands (e.g.,p41) may be detected in patients without Lyme disease, and patterns not meeting the CDC criteria should be interpreted with caution. Immunoblot should be ordered only on specimens that are positive or equivocal by a FDA-licensed Lyme disease antibody screening test (e.g., EIA). Test Performed by: [facility] - [address] [address] Dealmaker: Abner Romo II, M.D., Ph.D. 23 Test Result Flag UNITS TOXASSURE SELECT 13 (MW) Creatinine 151 mg/dL Ref Range>=20 Drugs Present Oxycodone 2291 ng/mg creat Oxymorphone 2415 ng/mg creat Noroxycodone 1442 ng/mg creat Noroxymorphone 394 ng/mg creat Sources of oxycodone are scheduled prescription medications. Oxymorphone, noroxycodone, and noroxymorphone are expected metabolites of oxycodone. Oxymorphone is also available as a scheduled prescription medication. Declared Medications: Not Provided Medication list was not provided. For clinical consultation, please call [phone]. 24 RESULTS VERIFIED BY REPEAT ANALYSIS 25 RESULTS VERIFIED BY REPEAT ANALYSIS Procedures Date CPT Code Description Status 05/27/2015 68599 Blood Pressure Monitoring Completed 05/26/2015 01635 Blood Pressure Review W/Report Completed 02/01/2015 03535 Pulse Oximetry Completed Encounters Type Date Location Provider CPT E/M Dx Office Visit 01/31/2018 7:20p Main Office John Arita M.D. 15097 K75.81 K36 G89.4 E78.2 Office Visit 09/27/2017 6:40p Main Office John Arita M.D. 81426 R74.9 Office Visit 09/17/2017 9:30a [facility] Office John Arita M.D. 76739 E78.2 R73.01 R94.5 Office Visit 07/14/2017 9:30a [facility] Office John Arita M.D. 53247 E78.2 R73.01 Office Visit 06/28/2017 2:00p Main Office John Arita M.D. 53335 Z00.01 G89.4 E78.2 R73.01 Z12.5 Z12.11 Z23 E78.1 Office Visit 01/18/2016 11:00a [facility] Office John Arita M.D. 07613 M25.50 Office Visit 01/07/2016 1:30p [facility] Anna Marie MichaelAMANDA 49074 R53.83 Office Visit 10/20/2015 2:50p [facility] Office John Arita M.D. 24394 G89.4 F06.31 L98.9 Office Visit 09/01/2015 8:00a [facility] Office John Arita M.D. 66689 E78.2 G89.4 R73.01 Z23 Office Visit 05/31/2015 8:00a [facility] Office Jonh Arita M.D. 66354 272.4 Office Visit 05/26/2015 4:00p Main Office Philip Graham M.D. 61282 796.2 Office Visit 05/03/2015 4:10p [facility] Office John Arita M.D. 83501 911.4 796.2 272.4 E906.4 272.1 Office Visit 03/25/2015 1:10p [facility] Office John Arita M.D. 20639 338.4 Office Visit 02/22/2015 2:00p [facility] Marti Amaya M.D. 40634 724.2 338.4 V77.91 Office Visit 02/01/2015 3:30p [facility] Office John Arita M.D. 92097 466.0 Office Visit 01/05/2015 9:40a [facility] [facility] Office Philip Graham M.D. [phone] Plan of Care 04/02/2018 - Anna Marie Rodriguez, FNPG89.4 Chronic pain syndromeAllComments:~B_~U_ Medication Management~b_~u_ Patient Understands medications he 's taking? Yes No Are there Barriers to Adherence? Yes No Has the patient been asked about herbal supplements and therapies, and OTC meds? Yes No ~B_~U_Care Plan~b_~u_1. Patient has been queried aboutpatient's goals/ preferences and functional/lifestyle goals at relevant visits. If relevant, describe: determine alternate management strategies for pain, to reduce overall use of narcotic2. Treatmentgoals as explained to the patient: above3. Are there barriers to meeting treatment goals? Yes No If Yes, please describe: physical habituation4. Self-Management goals as described to the patient: Yes No
[2018-04-05 14:55] VITALS: BP 129/78
[2018-04-05] MEDS ORDERED: cloNIDine 0.1 MG PATCH* 0.1 MG/24 HR 7 DAY PATCH TRANSDERM SCH (15:00)
--- NOTE | 2018-04-05 16:37 | ED ---
Ye Funk Stephanie, scribed for Samm Atkinson MD on 04/05/18 at 1411 . Complex/Multi-Sys Presentation - HPI Summary HPI Summary: The pt is a 57 y/o M presenting to the ED with c/o desire for oxycodone today. Symptoms include cotton mouth. The pt states he needs medications through . The pt has been 36 hours without medications. He states he is currently in withdrawal. He states he takes pain medications for various musculoskeletal issues. He states he will be going to an outreach program in 5 weeks. - History Of Current Complaint Chief Complaint: EDPrescriptionNeeded Time Seen by Provider: 04/05/18 13:32 Hx Obtained From: Patient Onset/Duration: Sudden Onset, Lasting Days Timing: Constant Associated Signs And Symptoms: Positive: Other - dry mouth - Allergies/Home Medications Allergies/Adverse Reactions: Allergies Allergy/AdvReac Type Severity Reaction Status Date / Time avocado AdvReac Headache Verified 04/05/18 12:54 PMH/Surg Hx/FS Hx/Imm Hx Endocrine/Hematology History: Denies: Hx Anticoagulant Therapy, Hx Blood Disorders, Hx Diabetes, Hx Thyroid Disease Cardiovascular History: Reports: Hx Hypercholesterolemia, Hx Hypertension Denies: Hx Pacemaker/ICD Respiratory History: Reports: Hx Chronic Bronchitis Denies: Hx Asthma, Hx Chronic Obstructive Pulmonary Disease (COPD) GI History: Denies: Hx Ulcer Musculoskeletal History: Reports: Hx Arthritis, Hx Back Problems, Hx Orthopedic Injury - Fractured pelvis and low back at age 14yrs old Sensory History: Reports: Hx Cataracts - Left eye cataract, Hx Contacts or Glasses - Contacts, Hx Vision Problem - Torn Retina last 2013 Left eye Denies: Hx Hearing Aid Opthamlomology History: Reports: Hx Cataracts - Left eye cataract, Hx Contacts or Glasses - Contacts, Hx Vision Problem - Torn Retina last 2013 Left eye Psychiatric History: Denies: Hx Panic Disorder - Cancer History Cancer Type, Location and Year: melanoma, 2018 Hx Chemotherapy: No Hx Radiation Therapy: No Hx Palliative Cancer Treatment: No - Surgical History Surgery Procedure, Year, and Place: Tonsillectomy at age 4 yrs. RETINA REPAIR W / CATARACT IMPLANT LATER ON- BEING CLEARED VIA X-RAY - Immunization History Date of Tetanus Vaccine: utd Date of Influenza Vaccine: none Infectious Disease History: No Infectious Disease History: Denies: Hx Clostridium Difficile, Hx Hepatitis, Hx Human Immunodeficiency Virus (HIV), Hx of Known/Suspected MRSA, Hx Shingles, Hx Tuberculosis, Hx Known/ Suspected VRE, Hx Known/Suspected VRSA, History Other Infectious Disease, Traveled Outside the [place] in Last 30 Days - Family History Known Family History: Positive: Cardiac Disease - Social History Occupation: Employed Full-time Lives: With Family Alcohol Use: None Alcohol Amount: 2 beer a couple times per month Hx Substance Use: No Substance Use Type: Reports: None, Prescribed Substance Use Comment - Amount & Last Used: oxycontin and oxycodone Hx Tobacco Use: No Smoking Status (MU): Never Smoked Tobacco Review of Systems Negative: Fever Negative: Slurred Speech All Other Systems Reviewed And Are Negative: Yes Physical Exam - Summary Physical Exam Summary: Appearance: Well appearing, no pain distress Skin: warm, dry, reflects adequate perfusion, no piloerection Head/face: normal Eyes: EOMI, DHIRAJ ENT: normal Neck: supple, non-tender Respiratory: CTA, breath sounds present Cardiovascular: RRR, pulses symmetrical Abdomen: non-tender, soft Bowel Sounds: present Musculoskeletal: normal, strength/ROM intact Neuro: normal, sensory motor intact, A&Ox3 Triage Information Reviewed: Yes Vital Signs On Initial Exam: Initial Vitals Temp Pulse Resp BP Pulse Ox 97.6 F 90 18 128/98 100 04/05/18 12:51 04/05/18 12:51 04/05/18 12:51 04/05/18 12:51 04/05/18 12:51 Vital Signs Reviewed: Yes Diagnostics - Vital Signs Vital Signs Temp Pulse Resp BP Pulse Ox 04/05/18 12:51 97.6 F 90 18 128/98 100 - Laboratory Lab Statement: Any lab studies that have been ordered have been reviewed, and results considered in the medical decision making process. Complex Multi-Symp Course/Dx Course Of Treatment: Mr. Mckeon had been using his pain medication and appropriately and was released by his pain management physician. As such, he is been out of his chronic oxycodone taken for arthritis pain. We discussed opiate withdrawal, need for reevaluation or repeat visit to the ER and how to plan with his doctor going forward. A clonidine patch was placed, he will use Imodium to help stem symptoms. He is also given promethazine to use along with hydration and Benadryl for control symptoms at home. He is in no overt withdrawal presently. He will follow up closely with his primary care physician and he has access to his current pain management doctor for the next 1 month. - Diagnoses Provider Diagnoses: Opioid abuse, Opioid dependence, Chronic pain syndrome Discharge - Sign-Out/Discharge Documenting (check all that apply): Discharge/Admit/Transfer - Discharge - Discharge Plan Condition: Fair Disposition: HOME Prescriptions: Promethazine TAB* [Phenergan Tab*] 25 - 50 mg PO Q6H PRN #40 tab PRN Reason: nausea/withdrawl symptoms Patient Education Materials: Opioid Withdrawal (ED), Safe Use of Opioids (ED) Referrals: John Arita MD [Primary Care Provider] - Additional Instructions: Call your doctor today to be reevaluated. They may refer you to another pain management doctor. Avoid opiate medications of all type until you're seen by a pain management doctor. Hydrate well, you may take Benadryl along with the prescribed medication. The patch applied here last for 1 week. You may also take Imodium per box instructions. Return if worse, dehydration, or other concerns. - Billing Disposition and Condition Condition: FAIR Disposition: Home The documentation as recorded by the Ye bravo Stephanie accurately reflects the service I personally performed and the decisions made by me, Samm Atkinson MD.
== END 2018-04-05 14:54 | disposition home or self-care (01) ==
LOC: ED 12:32
DX: F11.20 Opioid dependence, uncomplicated (principal); G89.4 Chronic pain syndrome
CPT/HCPCS: 99282

== ENCOUNTER 2019-09-03 16:55 | Emergency (ER) | payer OTHER ==
--- OUTSIDE RECORDS SUMMARY | 2019-09-03 17:01 | XMS REPORT | Continuity of Care Document ---
:1960 External Reference #:[id number] Author Name Evon Crowder NP Address [address] [place] [address] Care Team Providers Name Role Phone John Arita MD - Family Medicine Care Team Information Control Systems Engineer [facility] - Care Team Information Control Systems Engineer Explosive Ordnance Technician Problems Active Problems Provider Date Low back pain Marti Amaya M.D. Onset: 02/22/2015 Chronic pain syndrome Marti Amaya M.D. Onset: 02/22/2015 Impaired fasting glycaemia Marti Amaya M.D. Onset: 03/10/2015 Hyperlipidemia John Arita M.D. Onset: 05/31/2015 Mixed hyperlipidemia John Arita M.D. Onset: 09/01/2015 Type II diabetes mellitus uncontrolled John Arita M.D. Onset: 2017 Social History Type Date Description Comments Sex Unknown Tobacco Use Start: Unknown Never Smoked Cigarettes Smoking Status Reviewed: 07/21/19 Never Smoked Cigarettes ETOH Use Occasional Tobacco Use Start: Unknown Patient has never smoked Recreational Drug Use Denies Drug Use Allergies, Adverse Reactions, Alerts Description No Known Drug Allergies Medications Active Medications SIG Qnty Indications Ordering Date Provider Doxycycline Hyclate 1 by mouth two 42caps Evon Mallory 07/21/2019 times a day Crowder, INTELLECTUAL PROPERTY MANAGER 100mg Capsules Amitriptyline HCL 1-2 by mouth 60tabs G47.09 Emilee Curiel, 02/21/2019 25mg every at bedtime CARDROOM HAND Tablets Ipratropium [place] instill 2 sprays 30ml Evon Mallory 01/14/2019 into each Crowder, INTELLECTUAL PROPERTY MANAGER 0.03% Solution nostril twice a day if needed Pravastatin Sodium 1 by mouth every 90tabs E78.2 John Arita, 2018 20mg day M.D. Tablets Freestyle Lite Test test twice daily 100units John Arita, 12/24/2018 dx E11.9 last Ov M.D. Strips 07/11/18 Metformin HCL Take 1 Tablet By 60tabs R73.01 John Arita, 04/12/2018 500mg Mouth Two Times M.D. Tablets Daily With Food Glucometer dispense #1 Anna Marie 04/12/2018 machine for bid Michael, CARDROOM HAND glucose checks Lancet lancet devices Anna Marie 04/12/2018 for bid glucose Michael, CARDROOM HAND checks #20/ Suboxone dissolve 1 film Unknown 8-2mg Film under the tongue two times daily Immunizations CPT Code Status Date Vaccine Lot # [id number] Given 07/11/2018 Influenza Virus Vaccine, Recombinant Dna, [id number] [place] [id number] Given 06/28/2017 Influenza Vac, Quadrivalent, Slit Virus, Im [id number] Given 09/01/2015 Influenza Vac, Quadrivalent, Slit Virus, Im [id number] Vital Signs Date Vital Result Comment 07/21/2019 6:51pm BP Systolic 134 mmHg BP Diastolic 80 mmHg Heart Rate 90 /min Body Temperature 98.2 F Respiratory Rate 16 /min Height 70.5 inches 5'10.50" Weight 228.38 lb BMI (Body Mass Index) 32.3 kg/m2 02/21/2019 4:38pm BP Systolic 130 mmHg BP Diastolic 74 mmHg Heart Rate 84 /min Body Temperature 97.5 F Respiratory Rate 20 /min Weight 217.00 lb Results Description No Information Available Procedures Date Code Description Status 12/24/2018 [id number] Diabetic Retinal Eye Exam Completed 07/11/2018 [id number] Diabetic Foot Exam Completed Medical Devices Description No Information Available Encounters Type Date Location Provider Dx Diagnosis Office Visit 02/21/2019 4:30p Main Office AMANDA Cordero G47.09 Other insomnia Assessments Date Code Description Provider 07/21/2019 A69.20 Lyme disease, unspecified Evon Crowder NP 07/21/2019 Z23 Encounter for immunization Evon Crowder NP 02/21/2019 G47.09 Other insomnia AMANDA Cordero Plan of Treatment Future Appointment(s):08/07/2019 1:50 pm - John Arita M.D. at [facility] [place]507/21/2019 - Evon Crowder, NPA69.20 Lyme disease, unspecifiedComments:What is Lyme disease?Lyme disease is an illness that can make you feel like you have the flu. It canalso cause a rash, fever, or nerve, joint, or heart problems.People can get Lyme disease after beingbitten by a tiny insect called a tick. When a certain type of tick bites you, it can transmit the germ that causes Lyme disease from its body to yours. But a tick can infect you only if it stays attached for at least a day and a half.The ticks that carry Lyme disease feed on deer and mice. They are only about the size of a poppy seed when they are young, which is when they most often spread Lyme disease. They grow to about the size of a sesame seed as adults (figure 1) . Ticks are found in tall grassand on shrubs, and can attach to animals and people walking by. Ticks cannot fly or jump.What are the symptoms of Lyme disease?Symptoms can start days or weeks after a tick bite. They include:A rash where you were bitten ?? The rash often appears within a month of getting bitten. It is red, but its center can be the color of your skin. It might get bigger over a few days. To some, it looks like a "bull's eye" (picture 1) .FeverFeeling tiredBody aches and painsHeart problems such as a slowed heart rateHeadache and stiff neckFeelings of pain, weakness, or numbnessIf a person is not treated, further symptoms can occur months to years after a tick bite. These include:Pain and swelling of joints, such as your kneesTrouble with your memory and thinkingSkin problems, such as skin swelling or thinning (this occurs mostly in [place])Should I see a doctor or nurse?Yes. If you have symptoms of Lyme disease, see a doctor or nurse. Some people don't know that they were bitten by a tick. Or they might not remember having a rash or other early symptoms.Is there a test for Lyme disease?Yes. Blood tests can showif you are infected with the germ that causes Lyme disease. But it takes time for the blood tests toturn positive. This means the tests won't work if you get them right after being bitten. Also, the blood tests usually come back negative when you have the initial rash that goes with Lyme disease. Because of this, if you have the rash, you do not need a blood test to confirm that you have Lyme disease.If your doctor or nurse suspects you have Lyme disease, he or she will do an exam and ask you questions. The doctor or nurse will use this information (and your blood test result, if needed) to decideabout treatment.How is Lyme disease treated?Lyme disease is usually treated with antibiotics. There are a few different types. Treatment with antibiotics should help your symptoms go away. Sometimes, symptoms improve quickly. Other times, it can take weeks or months for symptoms to go away.What if I am ?If you are , talk to your doctor. Some medicines for Lyme disease are safe to takeif you are , but others are not.Can Lyme disease be prevented?The best way to prevent Lyme disease is to avoid getting bitten by a tick. But if you were already bitten, your doctor might give you an antibiotic. In some situations, this can reduce your chances of getting Lyme disease.To try to avoid getting bitten by a tick, you can:Wear shoes, long-sleeved shirts, and long pants when you go outside. Keep ticks away from your skin by tucking your pants into your socks.Wear light colors so youcan spot any ticks that get on your clothes.Wear bug spray or cream that contains DEET. (Do not use DEET on babies younger than 2 months.) On your clothes and gear, you can use bug repellents that havea chemical called "permethrin."Shower within 2 hours of being outdoors if you think you have been inan area where there are ticks.Put dry clothes briefly ( for about 4 minutes) in a dryer after being outdoors.Check your clothes and body for ticks after being outdoors. Be sure to check your scalp, waist, armpits , groin, and backs of your knees. Check your children, too.If you live in a place that has deer or mice nearby, take steps to keep those animals away. [place] and mice carry ticks.If you find a tick on your body or on your child, use tweezers to grab it. Then pull it out slowly and gently. Afterthat, wash the area with soap and water.You do not need to keep the tick. But knowing what it lookedlike can help your doctor decide about your treatment. See if you can tell :Its color and sizeIf it was attached to your skin or just resting on your skinIf it was big, round, and full of bloodYou should see your doctor or nurse if you have a tick and you cannot get it off.You should also call your doctor or nurse if you think you have had a tick attached for at least 36 hours (a day and a half). Thenhe or she can decide if you need to take a dose of an antibiotic to help prevent Lyme. Doctors only recommend antibiotics to prevent Lyme disease in some situations. It depends on your age, where you live, what kind of tick bit you, and how long it was attached.If you or your child was bitten by a deer tick, you should watch the area around the bite for a month to see if a rash appears. Doxycycline : Do not consume calcium (milk, cheese, yogurt) within 1-2 hours of taking the doxy. Careful with sunlight, it makes you more sensitive to the sun so use protective clothing and sunscreen if you are outdoorswhile using this medication and for about a week following its use.Z23 Encounter for immunizationComments:Your flu vaccination has been administered. This protects you for the fall, winter and spring. It will decrease the likelihood that you will get the flu. If you are unlucky and get the flu, the symptoms will be less severe.AllNew Medication:Doxycycline Hyclate 100 mg - 1 by mouth two times a dayComments:Medication Management Patient Understands medications he 's taking? Yes No Are there Barriers to Adherence? Yes No Has the patient been asked about herbal supplements and therapies, andOTC meds? Yes No Care Plan1. Patient has been queried about patient's goals/preferences and functional/lifestyle goals at relevant visits. If relevant, describe: na2. Treatment goals as explained to the patient: above3. Are there barriers to meeting treatment goals? Yes No If Yes, please describe:4. Self-Management goals as described to the patient: Yes NoAs always, we strongly encourage a healthy diet and making physical activity a part of your every day life. If you have questions about how or where to start, please contact the office.Follow up:As scheduled with MD Lyla next month Functional Status Description No Information Available Mental Status Description No Information Available Referrals Description No Information Available
[2019-09-03 17:20] VITALS: BP 147/92
--- NOTE | 2019-09-03 19:01 | UC ---
Dental HPI - HPI Summary HPI Summary: Patient is a 59-year-old male presenting with complaint of dental infection. Patient states he had multiple bottom teeth removed on 08/28 and finished his amoxicillin today. States he began to feel the pain 2 days ago where his right lower wisdom tooth was removed and it has gradually worsened. States the pain is radiating to his lower jaw and right ear. Notes swelling in the area. Denies bleeding or pus. Denies decreased ROM in jaw. Patient states he has been given amoxicillin the past for tooth infections and it always needed further antibiotic treatment. Denies fever and chills. Denies n/v/d and decreased appetite. - History of Current Complaint Chief Complaint: UCDentalProblem Stated Complaint: DENTAL COMPLAINT Hx Obtained From: Patient Onset/Duration: Gradual Onset, Lasting Days Severity: Mild Pain Intensity: 3 Pain Scale Used: 0-10 Numeric - Allergies/Home Medications Allergies/Adverse Reactions: Allergies Allergy/AdvReac Type Severity Reaction Status Date / Time avocado AdvReac Headache Verified 09/03/19 17:20 Home Medications: Home Medications Amitriptyline TAB* [Elavil TAB*] 25 mg PO BEDTIME 09/03/19 [History Confirmed ] Ibuprofen TAB* [Motrin TAB* 800 MG] 600 mg PO Q8H PRN 09/03/19 [History Confirmed 09/03/19] metFORMIN* [Glucophage 500 MG TAB *] 500 mg PO BID 09/03/19 [History Confirmed 09/03/19] PMH/Surg Hx/FS Hx/Imm Hx Other History Of: Negative For: Anticoagulant Therapy - Surgical History Surgical History: Yes Surgery Procedure, Year, and Place: Tonsillectomy at age 4 yrs. RETINA REPAIR W / CATARACT IMPLANT LATER ON- BEING CLEARED VIA X-RAY - Family History Known Family History: Positive: Cardiac Disease, Non-Contributory - Social History Occupation: Employed Full-time Alcohol Use: None Alcohol Amount: 2 beer a couple times per month Substance Use Type: None Substance Use Comment - Amount & Last Used: oxycontin and oxycodone Smoking Status (MU): Never Smoked Tobacco - Immunization History Most Recent Influenza Vaccination: Jul 2017 Most Recent Pneumonia Vaccination: Never Review of Systems All Other Systems Reviewed And Are Negative: Yes Constitutional: Positive: Negative. Negative: Fever Skin: Positive: Negative ENT: Positive: Dental Pain - R lower, Ear Ache - Right Respiratory: Positive: Negative Cardiovascular: Positive: Negative Gastrointestinal: Positive: Negative. Negative: Vomiting, Nausea Musculoskeletal: Positive: Arthralgia - jaw pain Neurological: Positive: Negative Physical Exam Triage Information Reviewed: Yes Appearance: Well-Appearing, No Pain Distress, Well-Nourished Vital Signs: Initial Vital Signs Temp 98.1 F 09/03/19 17:13 Pulse 93 09/03/19 17:13 Resp 16 09/03/19 17:13 BP 147/92 09/03/19 17:13 Pulse Ox 98 09/03/19 17:13 Vital Signs Reviewed: Yes Eyes: Positive: Conjunctiva Clear ENT: Positive: Hearing grossly normal, Pharynx normal, TMs normal, Dental tenderness - R lower gumline, Uvula midline Dental: Positive: Percussion Tenderness @ - R lower gingiva where wisdom tooth was extracted, Cellulitis @ - red streaking noted on R lower gingiva, Other: - minimal purulent drainage noted in socket where tooth #32 extracted. Negative: Abscess @, Cervical Lymphadenopathy, Bleeding Neck exam: Normal Neck: Positive: Supple, Nontender, No Lymphadenopathy Respiratory Exam: Normal Respiratory: Positive: Lungs clear, Normal breath sounds, No respiratory distress Cardiovascular Exam: Normal Cardiovascular: Positive: RRR Musculoskeletal: Positive: ROM Intact - full ROM of mandible Neurological: Positive: Alert Psychological: Positive: Age Appropriate Behavior Dental Complaint Course/Dx - Course Course Of Treatment: I am treating with clindamycin for dental infection. Instructed patient to continue with symptomatic treatment as well including salt water gargles, ibuprofen, and probiotics d/t C. diff risk. Stressed importance of following up with dentist as soon as possible for further eval. Instructed to go to ED with worsening symptoms. Patient voiced understanding and agreed with treatment plan. - Differential Dx/Diagnosis Provider Diagnosis: Dental infection Discharge ED - Sign-Out/Discharge Documenting (check all that apply): Patient Departure All imaging exams completed and their final reports reviewed: No Studies - Discharge Plan Condition: Stable Disposition: HOME Prescriptions: Clindamycin Cap(NF) [Clindamycin Cap 300 mg Cap(NF)] 300 mg PO Q6H #28 cap Patient Education Materials: Toothache (ED) Referrals: John Arita MD [Primary Care Provider] - If Needed Additional Instructions: As discussed, take clindamycin as prescribed for your dental infection. It is recommended that you eat kinyarwanda yogurt or take a probiotic found over the counter to help prevent infectious diarrhea called C. diff while taking this medication. An example of a probiotic is Culturelle. You may gargle warm salt water 2-3 times daily. You may use ibuprofen and tylenol as directed for pain relief. It is important that you follow up with your dentist as soon as possible for a re-check. Go to the emergency room if you experience new or worsening symptoms, including fever, severe pain, inability to move your jaw, or nausea and vomiting. - Billing Disposition and Condition Condition: STABLE Disposition: Home
== END 2019-09-03 19:33 | disposition home or self-care (01) ==
LOC: UCEAST 16:55
DX: K04.7 Periapical abscess without sinus (principal); Z91.018 Allergy to other foods
CPT/HCPCS: 99212; G0463

== ENCOUNTER 2020-10-07 17:52 | Inpatient (IN) ==
[2020-10-07] MEDS ORDERED: Heparin - STEMI 5,000 UNITS/ML 1 ml VIAL IV ONE (18:07)
[2020-10-07] MEDS ORDERED: Heparin 5000 UNITS/ML 1 mL VIAL ONE (18:10)
[2020-10-07 18:15] LABS: ABS Eosinophils 0.2 10^3/ul (0-0.6); ABS Lymphocytes 3.3 10^3/ul (1.0-4.8); ABS Monocytes 1.2 10^3/ul (0-0.8); ABS Neutrophils 3.5 10^3/ul (1.5-7.7); Eosinophil % 2.3 %; Hematocrit 44 % (42-52); Hemoglobin 15.3 g/dL (14.0-18.0); Mean Corpuscular HGB Conc 35 g/dL (31-36); Mean Corpuscular Hemoglobin 31 pg (27-31); Mean Corpuscular Volume 88 fL (80-94); Mean Platelet Volume 7.8 fL (7.4-10.4); Platelet Count 185 10^3/uL (150-450); Red Blood Count 4.97 10^6 /uL (4.18-5.48); Red Cell Distribution Width 14 % (10-15); White Blood Count 8.2 10^3/uL (3.5-10.8)
[2020-10-07] MEDS ORDERED: Midazolam 5 mg/5 ml VIAL 1 mg/ml 5 ml VIAL (5 mg) ONE (18:22)
[2020-10-07] MEDS ORDERED: Heparin 1,000 UNIT/ML 10 ml (10,000 UNITS) CATHLAB/DIALYSIS ONE (18:22)
[2020-10-07] MEDS ORDERED: Heparin 2 UNITS/ML 1000 mls IV ONE (18:22)
[2020-10-07] MEDS ORDERED: nitroGLYCERIN DRIP 100 MCG/ML 250 ML BTL ONE (18:22)
[2020-10-07] MEDS ORDERED: fentaNYL 100 mcg/2 ml 50 MCG/ML VIAL ONE (18:22)
[2020-10-07] MEDS ORDERED: Lidocaine 1% VIAL 10 MG/ML VIAL ONE (18:22)
[2020-10-07 18:35] LABS: Activated Partial Thrombo Time 29.4 seconds (26.0-38.0); INR 1.05 (0.82-1.09)
[2020-10-07 18:36] LABS: CKMB ng/mL 3.4 ng/mL (0.6-6.3)
[2020-10-07 18:37] LABS: Albumin 4.4 g/dL (3.2-5.2); Albumin/Globulin Ratio 1.6 (1-3); BUN/Creatinine Ratio 10.8 (8-20); EGFR African American 74.2 (>60); EGFR Non-African American 61.3 (>60); Globulin 2.7 g/dL (2-4); Potassium 3.3 mmol/L (3.5-5.0); Total Bilirubin 0.8 mg/dL (0.2-1.0); Total Protein 7.1 g/dL (6.4-8.9)
[2020-10-07] MEDS ORDERED: Bivalirudin 250 MG VIAL ONE ×2 (18:57→19:33)
[2020-10-07] MEDS ORDERED: Magnesium Sulfate IV 0.5 GM/ML 2 ml VIAL (1 gm) ONE ×2 (19:10→19:29)
[2020-10-07] MEDS ORDERED: Amiodarone IV 150 mg/3 ml VIAL ONE (19:10)
[2020-10-07] MEDS ORDERED: Amiodarone 360 MG IVPREMIX 360 MG/200 ML BAG IV ONE (19:10)
[2020-10-07] MEDS ORDERED: KCL 10 MEQ/50 ML IVPREMIX 10 MEQ/50 ML BAG ONE (19:13)
[2020-10-07 19:26] LABS: Magnesium 1.5 mg/dL (1.9-2.7)
[2020-10-07] MEDS: Amiodarone 360 MG IVPREMIX 360 MG/200 ML BAG IV ONE (19:27)
[2020-10-07] MEDS ORDERED: NS 0.9% 1000 ml BAG 1,000 ML IV SCH (20:00)
[2020-10-07] MEDS ORDERED: Ondansetron 4 mg VIAL 2 MG/ML 2 ml VIAL IV PRN (20:03)
[2020-10-07 20:57] LABS: Hematocrit 42 % (42-52); Mean Corpuscular HGB Conc 34 g/dL (31-36); Mean Corpuscular Hemoglobin 30 pg (27-31); Mean Corpuscular Volume 90 fL (80-94); Mean Platelet Volume 7.8 fL (7.4-10.4); Platelet Count 169 10^3/uL (150-450); Red Blood Count 4.62 10^6 /uL (4.18-5.48); Red Cell Distribution Width 14 % (10-15); White Blood Count 14.2 10^3/uL (3.5-10.8)
[2020-10-07 21:13] LABS: Myoglobin 1910.7 ng/mL (17.4-105.7); Troponin I 9.76 ng/mL (<0.03)
[2020-10-08] MEDS: Amiodarone 360 MG IVPREMIX 360 MG/200 ML BAG IV ONE (00:34)
[2020-10-08] MEDS ORDERED: Amiodarone 360 MG IVPREMIX 360 MG/200 ML BAG IV SCH (01:47)
[2020-10-08 02:51] LABS: Troponin I > 79.00 ng/mL (<0.03)
[2020-10-08 06:04] LABS: ABS Eosinophils 0.1 10^3/ul (0-0.6); ABS Lymphocytes 3.3 10^3/ul (1.0-4.8); ABS Monocytes 1.4 10^3/ul (0-0.8); ABS Neutrophils 7.6 10^3/ul (1.5-7.7); Eosinophil % 0.7 %; Hematocrit 40 % (42-52); Hemoglobin 13.9 g/dL (14.0-18.0); Lymphocyte % 26.4 %; Mean Corpuscular HGB Conc 35 g/dL (31-36); Mean Corpuscular Hemoglobin 31 pg (27-31); Mean Corpuscular Volume 89 fL (80-94); Mean Platelet Volume 8.1 fL (7.4-10.4); Platelet Count 176 10^3/uL (150-450); Red Blood Count 4.53 10^6 /uL (4.18-5.48); Red Cell Distribution Width 14 % (10-15); White Blood Count 12.3 10^3/uL (3.5-10.8)
[2020-10-08 06:17] LABS: Troponin I > 79.00 ng/mL (<0.03)
[2020-10-08 06:19] LABS: Anion Gap 10 mmol/L (2-11); BUN/Creatinine Ratio 10.6 (8-20); Blood Urea Nitrogen 12 mg/dL (6-24); CO2 Carbon Dioxide 24 mmol/L (22-32); Calcium 9.1 mg/dL (8.6-10.3); Chloride 101 mmol/L (101-111); Cholesterol 141 mg/dL; EGFR African American 79.6 (>60); EGFR Non-African American 65.8 (>60); Glucose 152 mg/dL (70-100); HDL Cholesterol 29.1 mg/dL; LDL Cholesterol 90 mg/dL; Potassium 4.4 mmol/L (3.5-5.0); Sodium 135 mmol/L (135-145); Triglycerides 109 mg/dL
[2020-10-08] MEDS ORDERED: Perflutren Lipid Microsphere 3 ML VIAL ONE (08:04)
[2020-10-08 09:03] LABS: Troponin I > 74.00 ng/mL (<0.03)
[2020-10-08] MEDS ORDERED: NS 0.9% 500 ml BAG 500 ML IV ONE (11:51)
[2020-10-08] MEDS: Buprenorp/Nalox 8-2 MG FILM SL FILM SCH (13:03)
[2020-10-08] MEDS ORDERED: nitroGLYCERIN DRIP 25,000 MCG/250 ML BTL IV ONE (13:36)
[2020-10-08] MEDS ORDERED: Al Hydrox/Mg Hydrox/Simet LIQ 30 ML UDC PO ONE (13:44)
[2020-10-08 14:53] LABS: Troponin I 50.79 ng/mL (<0.03)
[2020-10-08 15:27] LABS: Magnesium 2.1 mg/dL (1.9-2.7)
[2020-10-09 04:35] LABS: Hematocrit 36 % (42-52); Hemoglobin 12.4 g/dL (14.0-18.0); Mean Corpuscular HGB Conc 34 g/dL (31-36); Mean Corpuscular Hemoglobin 31 pg (27-31); Mean Corpuscular Volume 91 fL (80-94); Mean Platelet Volume 8.2 fL (7.4-10.4); Platelet Count 142 10^3/uL (150-450); Red Cell Distribution Width 14 % (10-15); White Blood Count 10.6 10^3/uL (3.5-10.8)
[2020-10-09 04:42] LABS: ABS Basophils 0.1 10^3/ul (0-0.2); ABS Eosinophils 0.2 10^3/ul (0-0.6); ABS Lymphocytes 2.4 10^3/ul (1.0-4.8); Eosinophil % 1.7 %; Lymphocyte % 22.7 %
[2020-10-09 04:53] LABS: BUN/Creatinine Ratio 11.5 (8-20); Calcium 8.8 mg/dL (8.6-10.3); EGFR African American 79.6 (>60); EGFR Non-African American 65.8 (>60); Potassium 3.8 mmol/L (3.5-5.0)
[2020-10-09] MEDS: Buprenorp/Nalox 8-2 MG FILM SL FILM SCH (09:37)
[2020-10-10 08:16] LABS: ABS Basophils 0.1 10^3/ul (0-0.2); ABS Eosinophils 0.3 10^3/ul (0-0.6); ABS Lymphocytes 3.1 10^3/ul (1.0-4.8); ABS Monocytes 1.5 10^3/ul (0-0.8); Eosinophil % 2.6 %; Hematocrit 41 % (42-52); Hemoglobin 13.8 g/dL (14.0-18.0); Lymphocyte % 31.5 %; Mean Corpuscular HGB Conc 34 g/dL (31-36); Mean Corpuscular Hemoglobin 30 pg (27-31); Mean Corpuscular Volume 90 fL (80-94); Mean Platelet Volume 8.1 fL (7.4-10.4); Platelet Count 155 10^3/uL (150-450); Red Blood Count 4.55 10^6 /uL (4.18-5.48); Red Cell Distribution Width 14 % (10-15)
[2020-10-10 08:31] LABS: BUN/Creatinine Ratio 13.1 (8-20); Calcium 8.7 mg/dL (8.6-10.3); EGFR African American 72.8 (>60); EGFR Non-African American 60.2 (>60); Magnesium 1.7 mg/dL (1.9-2.7); Potassium 3.7 mmol/L (3.5-5.0)
[2020-10-10] MEDS: Buprenorp/Nalox 8-2 MG FILM SL FILM SCH (09:15)
[2020-10-10 11:39] VITALS: BP 126/81
== END 2020-10-10 12:30 | disposition home or self-care (01) | DRG 174 ==
LOC: ED 17:52 → CHICATH 18:25 → ICU 18:40 → MEDTELE 10-09 23:28